=== PATIENT | male | born 1925 | race Caucasian/White ===

== ENCOUNTER 2016-08-18 09:33 | Inpatient (IN) | payer MEDICARE, OTHER ==
[2016-08-18 10:08] LABS: ABSOLUTE NEUTROPHIL COUNT 12.2 K/mm3 (1.8-7.7); BASO # 0.1 K/mm3 (0.0-0.2); BASO % 0.4 % (0.2-1.0); EOS % 0.2 % (0.9-2.9); HEMATOCRIT 49.1 % (32.0-52.0); HEMOGLOBIN 15.8 gm/l (14.0-18.0); IMM NEUT # 0.1 K/mm3 (0-0.2); IMM NEUT% 0.8 % (0-1); LYMPH # 0.5 (1.0-4.8); LYMPH % 3.5 % (15-45); MEAN CELL VOLUME 95.7 fl (80.0-94.0); MEAN CORPUSCULAR HEMOGLOBIN 30.8 pg (27.0-31.0); MEAN CORPUSCULAR HGB CONC 32.2 g/dl (33.0-37.0); MONO # 1.3 (0.0-0.8); MONO % 8.8 % (4-12); NEUT % 86.3 % (43-75); PLATELET COUNT 270 K/mm3 (130-400); RED CELL DISTRIBUTION WIDTH 12.2 % (11.5-14.5)
[2016-08-18] MEDS ORDERED: LACTATED RINGERS 1,000 ML ONE ×2 (10:08→12:06)
[2016-08-18] MEDS ORDERED: LIDOCAINE 2% UROJECT 10 ML ONE (10:12)
[2016-08-18 10:16] LABS: INR 4.78; PROTHROMBIN TIME 54.5 SECONDS (9.3-11.4)
[2016-08-18 10:22] LABS: ALB/GLOB RATIO 1.1 (>1.0); ALBUMIN 3.8 gm/dL (3.5-5.7); CALCIUM 9.3 mg/dL (8.6-10.3)
[2016-08-18 10:26] LABS: SPECIFIC GRAVITY 1.015 (1.001-1.030); URINE BILIRUBIN NEGATIVE (NEGATIVE); URINE BLOOD 3+ (NEGATIVE); URINE GLUCOSE (UA) NEGATIVE (NEGATIVE); URINE NITRITE NEGATIVE (NEGATIVE); URINE PROTEIN 3+ (NEGATIVE); URINE UROBILINOGEN NORMAL (0-1 mg/dl)
[2016-08-18 10:27] LABS: URINE APPEARANCE CLOUDY; URINE COLOR RED; URINE LEUKOCYTE ESTERASE 1+ (NEGATIVE)
[2016-08-18 10:28] LABS: URINE BACTERIA 4+; URINE EPITHELIAL CELLS 0-1 /hpf; URINE RBC PACKED /hpf; URINE WBC 20-30 /hpf
--- NOTE | 2016-08-18 11:37 | RAD ---
08/18/2016 11:32 AM CHEST-AP BEDSIDE History: Known UTI. Hematuria. Comparison: 12/15/2011 Findings: Single AP view of the chest is obtained. The lungs are clear with out effusion or pneumothorax. The cardiomediastinal silhouette is unremarkable.. The osseous structures are intact.. Median sternotomy wires are present. IMPRESSION: No acute intrathoracic process.
[2016-08-18 11:39] LABS: TROPONIN I < 0.01 ng/ml (0.0-0.06)
[2016-08-18 11:43] LABS: CKMB ISOENZYME 5.5 ng/ml (0.6-6.3)
[2016-08-18] MEDS ORDERED: CEFTRIAXONE 1 GRAM DUPLEX 50 ML IV ONE (12:05)
[2016-08-18] MEDS ORDERED: FENTANYL 100 MCG/2 ML VIAL ONE (12:06)
[2016-08-18] MEDS ORDERED: SODIUM CHLORIDE 0.9% FLUSH 10 ML ONE (14:01)
[2016-08-18 14:15] VITALS: BMI 25.9
[2016-08-18] MEDS ORDERED: BISACODYL 10 MG SUP PR PRN (14:47)
[2016-08-18] MEDS ORDERED: SODIUM CHLORIDE 0.9% 100 ML IV PRN (14:47)
[2016-08-18] MEDS ORDERED: ACETAMINOPHEN 325 MG TABLET PO PRN (14:47)
[2016-08-18] MEDS ORDERED: BLISTEX LIPSTICK 1 EACH TP PRN (14:47)
[2016-08-18] MEDS ORDERED: BISACODYL 5 MG TABLET.EC PO PRN (14:47)
[2016-08-18] MEDS ORDERED: MAGNESIUM HYDROXIDE 30 ML UDCUP PO PRN (14:47)
[2016-08-18] MEDS ORDERED: MENTHOL/CETYLPYRD 1 EACH LOZENGE PO PRN (14:47)
[2016-08-18] MEDS ORDERED: ONDANSETRON 4 MG/2ML 2 ML VIAL IV PRN (14:57)
[2016-08-18] MEDS ORDERED: PANTOPRAZOLE SODIUM 40 MG VIAL IV SCH (15:00)
[2016-08-18] MEDS ORDERED: WARFARIN PER PHARMACY 1 EACH DOSE PO SCH (15:00)
[2016-08-18] MEDS ORDERED: SODIUM CHLORIDE 0.9% 1,000 ML IV SCH (15:00)
[2016-08-18] MEDS: INSULIN ASPART (DOSE) 100 UNITS/1 ML SUB-Q PRN ×3 (15:36→19:11)
[2016-08-18] MEDS: INSULIN GLARGINE (DOSE) 100 UNITS/ML UNIT SUB-Q SCH (15:36)
[2016-08-18 15:50] LABS: CALCIUM 9.4 mg/dL (8.6-10.3)
[2016-08-18] MEDS: PANTOPRAZOLE 40 MG TABLET DR PO SCH (17:06)
[2016-08-18] MEDS: INSULIN ASPART (DOSE) 100 UNITS/1 ML SUB-Q SCH (17:06)
--- NOTE | 2016-08-18 17:15 | HP ---
SUBHA DALY [id number] IDENTIFYING DATA: This is an 89-year-old male. DATE OF : 1925 CHIEF COMPLAINT: Hematuria. HISTORY OF PRESENT ILLNESS: The patient is an 89-year-old male accompanied by his who is providing details of the history today. The patient has a long-standing history of hematuria, the last episode was two years ago, and he was evaluated by Dr. Matta. He was found to have significant BPH, and no other problems at the time. He also has recurrent UTIs. On 07/29/2016, the patient seemed to have increased urinary frequency and he was evaluated at Urgent Care where they found a UTI and he was provided with ciprofloxacin. His infection did not seem to improve, then Dr. Gavin's office, his primary care physician, was contacted on 08/11/2016 for continued urinary frequency and urgency, and a second prescription of medications was provided. He was given ciprofloxacin for 14 days. Two days ago the patient's urinary frequency improved very little, and then two days ago he developed hematuria that has been worsening over the past two days. Due to the hematuria and that the patient takes warfarin, he presented to the emergency department today. His also notes that his blood sugar has been elevated for the past two or so weeks with this infection and they have been having difficulty controlling it. He is a poor historian, as he has memory loss. REVIEW OF SYSTEMS: General - no fevers or chills. HEENT - no throat pain or congestion. Cardiovascular - no chest pain or pressure. Respiratory - no shortness of breath or difficulty in breathing. Abdomen - nausea. Decreased appetite. No abdominal pain. No vomiting. - hematuria and increased urinary frequency. Musculoskeletal - no muscle aches or pains. Neurologic - no numbness or tingling. No headaches. PAST MEDICAL HISTORY: Includes: 1. Hyperlipidemia. 2. Type-2 diabetes. 3. BPH. 4. Hypertension. 5. Memory loss. PAST SURGICAL HISTORY: He has had: 1. Appendectomy. 2. Inguinal hernia repair. 3. Lumbar herniated disk repair. 4. Artificial heart valve. MEDICATIONS: Include: 1. Simvastatin. 2. Lantus. 3. Finasteride. 4. Lisinopril. 5. Warfarin. ALLERGIES: Sulfa. SOCIAL HISTORY: He lives with his who cares for him. No alcohol or drug use. 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 FAMILY MEDICAL HISTORY: Paternal history of Alzheimer's disease, migraines and acute myocardial infarction. Mother with diabetes. PHYSICAL EXAMINATION: GENERAL: The patient is alert and oriented. Mild distress, as he is unfamiliar with surroundings and wants to get out of bed. VITAL SIGNS: Temperature 98.2. Heart rate 127. Blood pressure 146/72. He is saturating 93% on room air. HEENT: Normocephalic, atraumatic. No tenderness to palpation. His mucous membranes are moist. His pupils are equal, round and reactive. His extraocular muscles are intact. NECK: Supple. Trachea is midline. CARDIOVASCULAR: Tachycardiac. It is regular. He has a click. Positive S1, S2. LUNGS: Clear to auscultation bilaterally. No rhonchi or wheezing. ABDOMEN: There is some distention. Nontender. No rebound and no guarding. MUSCULOSKELETAL: He is moving all extremities without difficulty. NEUROLOGIC: He is alert and oriented. He is moving all extremities without difficulty. LABORATORY STUDIES: White blood count 14.1, [id number], hematocrit 49.1 and platelet count of 270. PT of 54.5. INR of 4.78. Lactate 2.7, sodium 130, potassium 4.5, chloride 96, carbon dioxide 22, anion gap of 17, BUN of 40 and creatinine of 1.8. Glucose of 476. Troponin less than 0.1. CK-MB of 5.5. Urinalysis was red and cloudy, 3+ protein, negative glucose and ketones, 3+ blood, 1+ leukocyte esterase, 20-30 white blood cells, 0-1 epithelial cells and 4+ urine bacteria. IMAGING: A chest x-ray was obtained and interpreted as no acute intrathoracic process. TELEMETRY: On telemetry monitoring, the patient is sinus tachycardia with a rate of 127. ASSESSMENT/PLAN: This is an 89-year-old male with recurrent UTIs and recent development of hematuria with an elevated INR. 1. Sepsis secondary to UTI. Elevated lactate and elevated white blood count with tachycardia. His laboratory values with the elevated lactate and elevated white blood count, along with the tachycardia counts, to be attributed to DKA process. Prior urine culture results showed E-coli with pansensitivity. Will place him on Rocephin and monitor. Lactate was elevated. We will repeat this measurement. 2. DKA, with a glucose of 476 and an anion gap of 17. He received one liter of IV fluids in the ER. We will give him a second IV fluid liter bolus. He did take his Lantus last night. We will provide his usual doses, give him a sliding scale and monitor closely. We will continue IV fluids. 3. Elevated INR. The patient is anticoagulated, with hematuria. Will monitor, as he appears hemodynamically stable at this time. It is a very tenuous situation in that he needs anticoagulation for his mechanical valve, but if hematuria does not improve, we will have to provide vitamin K or other therapeutic measures. 4. RANJEET. Baseline creatinine is around 1 - 1.1. Today's creatinine is 1.8 secondary to decreased hypoperfusion due to the tachycardia. 5. Hyponatremia, unknown if acute or chronic. Will provide IV fluids and monitor. 6. Hyperlipidemia. Will continue his current medications. 7. BPH. Will continue his finasteride and monitor closely. Dr. Matta was consulted in the emergency department. He did not recommend against the López and to monitor the hematuria. 8. High blood pressure. Will continue his Lisinopril and monitor as necessary. 9. Memory loss. Unknown if the patient has dementia. With the patient's memory loss and irritation, he currently has a sitter for redirection and to remain calm. 10. The patient is a DNR. cc: Dr. Sam Gavin
[2016-08-18] MEDS: SODIUM CHLORIDE 0.9% 1,000 ML IV SCH (17:59)
[2016-08-18 19:17] LABS: CALCIUM 8.8 mg/dL (8.6-10.3)
[2016-08-18] MEDS ORDERED: SIMVASTATIN 40 MG TABLET PO SCH (20:00)
[2016-08-18] MEDS: DOCUSATE SODIUM 100 MG CAPSULE PO SCH (20:42)
--- NOTE | 2016-08-18 21:04 | PDOC36 ---
Provider Note Subject: Patient's mental status and hyperglycemia improving. Lactic acid and Cre worsening however. With patient's poor short term memory and requiring redirection, IVF hydration has been difficult. Will increase fluid rate and continue to monitor With recommendation to ALVIN delvalle, unable to monitor urine output.
[2016-08-18] MEDS ORDERED: QUETIAPINE FUMARATE 25 MG TABLET PO ONE (22:27)
[2016-08-18] MEDS ORDERED: IV START KIT ONE (22:51)
[2016-08-19] MEDS ORDERED: QUETIAPINE FUMARATE 25 MG TABLET PO ONE (01:22)
[2016-08-19] MEDS: SODIUM CHLORIDE 0.9% 1,000 ML IV SCH ×3 (03:02→20:54)
[2016-08-19] MEDS: INSULIN ASPART (DOSE) 100 UNITS/1 ML SUB-Q PRN (03:22)
[2016-08-19 05:41] LABS: ABSOLUTE NEUTROPHIL COUNT 10.1 K/mm3 (1.8-7.7); BASO # 0.1 K/mm3 (0.0-0.2); BASO % 0.6 % (0.2-1.0); EOS % 0.2 % (0.9-2.9); HEMATOCRIT 40.9 % (32.0-52.0); HEMOGLOBIN 13.3 gm/l (14.0-18.0); IMM NEUT # 0.1 K/mm3 (0-0.2); LYMPH # 0.5 (1.0-4.8); LYMPH % 3.8 % (15-45); MEAN CELL VOLUME 94.7 fl (80.0-94.0); MEAN CORPUSCULAR HEMOGLOBIN 30.8 pg (27.0-31.0); MEAN CORPUSCULAR HGB CONC 32.5 g/dl (33.0-37.0); MONO # 1.3 (0.0-0.8); MONO % 10.7 % (4-12); NEUT % 83.7 % (43-75); PLATELET COUNT 187 K/mm3 (130-400); RED CELL DISTRIBUTION WIDTH 12.2 % (11.5-14.5)
[2016-08-19 05:56] LABS: ALBUMIN 2.8 gm/dL (3.5-5.7); CALCIUM 8.5 mg/dL (8.6-10.3)
[2016-08-19] MEDS ORDERED: SODIUM CHLORIDE 0.9% 1,000 ML IV SCH (06:53)
[2016-08-19 07:05] LABS: BAND 4 % (0-10); BASOPHIL 0 % (0-1); EOSINOPHIL 2 % (1-3); LYMPHOCYTE 9 % (15-45); MONOCYTE 9 % (4-12); NEUTROPHILS 76 % (43-75); PLATELET ESTIMATE NORMAL (NORMAL); TOTAL CELLS COUNTED 100
--- NOTE | 2016-08-19 07:43 | PDOC43 ---
- Subjective Chief Complaint: hematuria Patient with poor short term memory, remains slightly agitated and trying to get out of bed. Constant request to urinate even though he has adult diaper and urinal at bedside. With his fidgeting, IV fluid administration has been challenging. He has no complaints Subjective: Reports Pain Tolerable, Reports Tolerating Diet Well, Denies Urinating Without Difficulty, Denies Shortness of Breath, Denies Cough, Denies Chest Pain, Denies Abdominal Pain, Denies Nausea - Objective Vital Signs Temperature 98.7 F 08/19/16 03:20 Pulse Rate 105 08/19/16 03:20 Respiratory Rate 26 08/19/16 04:00 Blood Pressure 100/57 08/19/16 03:20 O2 Saturation by Pulse Oximetry 94 08/19/16 03:20 Oxygen Delivery Method Room Air Oxygen Flow Rate 0 Intake and Output 08/17/16 08/18/16 08/19/16 23:59 23:59 23:59 Intake Total 2144 2030 Output Total 463 183 Balance 1681 1847 General: Alert, Cooperative, Other (oriented to self, is redirectable), No Acute Distress HEENT: Atraumatic, PERRLA, EOMI, Other (mucus membranes dry) Lungs: Clear to Auscultation Bilaterally, Normal Air Movement Cardiovascular: Regular Rate and Rhythm, Normal S1, Normal S2, Other ( tachycardic, click) Abdomen: Soft, Mild Distention, No Rigid, No Tenderness, No Rebounding Extremities: No Cyanosis, No Edema, No Tenderness Peripheral Pulses: Radial (L): 2+, Radial (R): 2+, Posterior Tibialis (L): 1+, Posterior Tibialis (R): 1+ Neurological: Normal Speech Psych/Mental Status: Normal Affect, Anxious, Other (will calm down with rediretion) Laboratory 08/19/16 05:15 08/19/16 05:15 08/19/16 08/19/16 08/18/16 05:15 00:35 21:14 RBC 4.32 L MCV 94.7 H MCHC 32.5 L VBG Lactate 2.3 H BUN 41 H Estimated GFR 34 L POC Capillary Glucose 113 H Calcium 8.5 L Total Protein 5.5 L Albumin 2.8 L 08/18/16 08/18/16 08/18/16 19:05 18:50 17:01 RBC MCV MCHC VBG Lactate 3.0 H BUN 42 H Estimated GFR 30 L POC Capillary Glucose 179 H 383 H Calcium Total Protein Albumin 08/18/16 08/18/16 14:47 12:24 RBC MCV MCHC VBG Lactate 2.7 H BUN Estimated GFR POC Capillary Glucose 456 H Calcium Total Protein Albumin Current Medications: Current meds reviewed in EMR. - Problems: Assessment/Plan (1) Sepsis Qualifiers: Sepsis type: sepsis due to unspecified organism Qualifier Code: (A41.9 ) Sepsis, unspecified organism Status: AcuteAssessment/Plan: 2nd to UTI. WBC improving, remains afebrile, HR elevation when patient active but resolves when he is calm. Lactate variation overnight which is multifactorial due to DKA, poor IVF access, poor urine output. Patient is more alert and redirectable which is improvement in his mental status. Cre with slow improvement. Abx based upon urine culture results which grew e coli. Current urine culture pending. Increased IV Fluid rate and if patient remains calm has good urine output (2) DKA (diabetic ketoacidoses) Qualifiers: Diabetes mellitus type: type 2 Status: AcuteAssessment/Plan: BS improved with resolution of AG. (3) UTI (urinary tract infection) Qualifiers: Urinary tract infection type: acute cystitis Hematuria presence: with hematuria Qualifier Code: (N30.01) Acute cystitis with hematuria Status : AcuteAssessment/Plan: with sepsis, recent UTI with e coli on culture, ABx based on recent culture results. With his significant BPH, difficult to monitor urine output as urology recommends against delvalle catheter. Patient with extreme difficulty understanding the use of adult diaper and difficulty with urinal use so urine output difficult to monitor. WBC improving. Current urine culture pending. Mental status improving With hematuria and elevated INR. (4) Elevated INR Status: AcuteAssessment/Plan: Patient on warfarin for mechanical valve. INR elevated, likely 2nd to use of ciprofloxacin and poor oral intake with his loss of appetite. Contributing to hematuria. Monitor, Vitamin K if remains elevated (5) RANJEET (acute kidney injury) Status: AcuteAssessment/Plan: multifactorial with po poor intake, sepsis. Slow improvement, increasing IVF rate (6) Hyponatremia Status: AcuteAssessment/Plan: resolved (7) HLD (hyperlipidemia) Qualifiers: Hyperlipidemia type: mixed hyperlipidemia Qualifier Code: (E78.2) Mixed hyperlipidemia Status: AcuteAssessment/Plan: stable (8) BPH (benign prostatic hypertrophy) Qualifiers: Prostatic enlargement morphology: unspecified morphology Lower urinary tract symptom presence: symptoms present Qualifier Code: (N40.1) Benign prostatic hyperplasia with lower urinary tract symptoms Status: Acute Assessment/Plan: contributes to poor urine output and painful urination. Traumatic delvalle attempt in ED contributing to hematuria (9) Memory loss Status: AcuteAssessment/Plan: poor short term memory making cares extremely difficult with constant redirection, 1-1 cares (10) Hematuria Status: AcuteAssessment/Plan: multifactorial due to UTI, elevated INR and traumatic delvalle attempt. Dr. Matta, urology, contacted from ED and his recommendation is to remove delvalle and monitor (11) Anemia Qualifiers: Anemia type: unspecified type Qualifier Code: (D64.9) Anemia, unspecified Status: AcuteAssessment/Plan: multifactorial and baseline hemoglobin low, dilutional, acute blood loss From 15.8 to 13.3
[2016-08-19 07:58] LABS: PROTHROMBIN TIME 60.9 SECONDS (9.3-11.4)
[2016-08-19 08:03] LABS: INR 5.31
[2016-08-19] MEDS ORDERED: PHYTONADIONE 10 MG/1 ML AMP IV ONE (08:16)
[2016-08-19] MEDS: LISINOPRIL 10 MG TABLET PO SCH (09:52)
[2016-08-19] MEDS: DOCUSATE SODIUM 100 MG CAPSULE PO SCH ×2 (09:52→21:00)
[2016-08-19] MEDS: QUETIAPINE FUMARATE 25 MG TABLET PO SCH ×2 (09:53→21:01)
[2016-08-19] MEDS: FINASTERIDE 5 MG TABLET PO SCH (09:53)
[2016-08-19] MEDS: INSULIN ASPART (DOSE) 100 UNITS/1 ML SUB-Q SCH ×3 (09:57→16:51)
[2016-08-19] MEDS ORDERED: LIDOCAINE 2% UROJECT 10 ML ONE (10:27)
[2016-08-19] MEDS ORDERED: LORAZEPAM 2 MG/ML 1ML SDV IV ONE (10:59)
[2016-08-19] MEDS ORDERED: WATER FOR IRRIG,STERILE 1,000 ML BOT ONE (11:04)
[2016-08-19] MEDS ORDERED: MORPHINE SULFATE 2 MG/ML SYRINGE IV ONE (11:04)
[2016-08-19] MEDS ORDERED: SODIUM CHLORIDE 3 L IRRIG BAG 3,000 ML IR ONE (11:10)
[2016-08-19] MEDS ORDERED: WATER FOR IRRIG,STERILE 1,000 ML BOT IR ONE (11:39)
[2016-08-19] MEDS: SODIUM CHLORIDE 3,000 ML IRRIG.SOLN IR SCH ×4 (11:43→21:31)
--- NOTE | 2016-08-19 11:52 | OP ---
Brent Lopez [id number] DATE OF SURGERY: 08/19/2016 SURGEON: Mik Matta M.D. This surgery is performed in the intensive care unit at [facility]. WASTE PICKER: None. ANESTHESIA: Lidocaine gel infusion into urethra. PREPROCEDURE DIAGNOSIS: Hematuria with clot retention. POSTPROCEDURAL DIAGNOSES: 1. Hematuria with clot retention. 2. Phimosis. PROCEDURE: Difficult urethral catheter placement with evacuation of clots. INDICATIONS: An 89-year-old man admitted yesterday having recently been treated with ciprofloxacin for a presumed urinary tract infection. He was chronic warfarin and his INR chevy substantially and he began experiencing hematuria which ultimately brought him to the emergency room. While he was voiding and not reporting any clots and the apparent residual was relatively small, the situation was complicated by the fact that the emergency room personnel attempted the catheter placement. Their small catheter properly clotted and he now has progressed to clot retention having had that smaller catheter removed yesterday. His INR remains high at 5 or above. He on treatment for possible infection with a different antibiotic at this point. FINDINGS: Tight phimosis and inferior meatal narrowing. Difficult catheterization with known prostatic enlargement, irregular cord swelling, remote TURP, and known vessels along the prostatic urethra which are the likely source of the current bleeding. There was only a small amount of clot in the bladder and the urine itself was brownish in color suggesting relatively old blood. PROCEDURE: The patient was identified and provided with some analgesics and sedation by his medical staff. The penile region was prepared with Betadine. I initially could not get a catheter passed the phimosis and used a hemostat to dilate this area partially. Then, I used a urojet to inject Lidocaine jelly and subsequently used a 24-Hungarian catheter on a catheter guide which I carefully directed through the urethra and guided it through the prostatic urethra into the bladder and removed the guide. We drained the bladder of old urine. The patient probably felt more comfortable. Ultimately inflated the balloon with 30 mL of water and hand irrigated to clear accumulated small amounts of clot. We left the catheter thorough irrigation and gravity drainage. Estimated blood loss acutely less than 20 mL. The old blood estimated at probably 50 mL. JOB: [id number] CC: Dr. Sam Justinton hospitalist staff
[2016-08-19] MEDS: CEFTRIAXONE SODIUM 2 G in SODIUM CHLORIDE 0.9% 100 ML IV SCH (11:53)
[2016-08-19] MEDS: PANTOPRAZOLE 40 MG TABLET DR PO SCH (16:33)
[2016-08-19] MEDS: INSULIN GLARGINE (DOSE) 100 UNITS/ML UNIT SUB-Q SCH (16:50)
[2016-08-19] MEDS ORDERED: SODIUM CHLORIDE IRRIG 1,000 ML BOT IR ONE (18:09)
[2016-08-19] MEDS: WATER IV SCH (19:31)
[2016-08-19] MEDS: FLUCONAZOLE IV SCH (19:31)
[2016-08-20] MEDS: SODIUM CHLORIDE 3,000 ML IRRIG.SOLN IR SCH ×9 (00:35→22:21)
[2016-08-20] MEDS: SODIUM CHLORIDE 0.9% 1,000 ML IV SCH ×3 (04:38→15:45)
[2016-08-20 05:51] LABS: HEMATOCRIT 42.4 % (32.0-52.0); HEMOGLOBIN 13.8 gm/l (14.0-18.0); MEAN CELL VOLUME 93.8 fl (80.0-94.0); MEAN CORPUSCULAR HEMOGLOBIN 30.5 pg (27.0-31.0); MEAN CORPUSCULAR HGB CONC 32.5 g/dl (33.0-37.0); RED CELL DISTRIBUTION WIDTH 12.4 % (11.5-14.5)
[2016-08-20 06:06] LABS: INR 1.31
[2016-08-20 06:12] LABS: CALCIUM 8.3 mg/dL (8.6-10.3)
--- NOTE | 2016-08-20 08:31 | PDOC43 ---
- Subjective Chief Complaint: hematuria, sepsis, UTI RN reports HR 120-130s, sinus tachy, but up to 180 when getting up to stand. Minimal appetite, some nausea this am reported. Delvalle still in, draining pale urine, not much blood, minimal clots, No BMs. Respiratory status ok, sl tachypnea, thought to be anxiety; pt still c/ o need to urinate (but has Delvalle in, low residual - 120ish). Some anxiety, not overly agitated today, although pt reports need to have BM/ having BM. C/o needing to urinate (but Delvalle in). - Objective Vital Signs Temperature 98.8 F 08/20/16 07:00 Pulse Rate 120 08/20/16 07:00 Respiratory Rate 29 08/20/16 07:00 Blood Pressure 144/77 08/20/16 07:00 O2 Saturation by Pulse Oximetry 96 08/20/16 07:00 Oxygen Delivery Method Room Air Oxygen Flow Rate 0 Vital Signs Last 12 Hours Temp Pulse Resp BP Pulse Ox 08/20/16 07:00 98.8 F 120 29 144/77 96 08/20/16 02:59 99.5 F 115 32 110/60 96 08/19/16 22:56 99.1 F 122 30 143/79 97 08/19/16 19:53 34 08/19/16 19:35 98.2 F 148 28 150/69 99 Intake and Output 08/18/16 08/19/16 08/20/16 23:59 23:59 23:59 Intake Total 2144 3895 1267 Output Total 463 3009 750 Balance 1681 886 517 Intake & Output 08/19/16 08/19/16 08/20/16 15:59 23:59 07:59 Intake Total 1865 1267 Output Total 1201 1625 750 Balance -1201 240 517 Weight 83.5 kg 84.2 kg Intake: PO Intake 200 120 IV Fluids 1665 1147 Output: Void 15 Delvalle Output 900 1625 750 Diaper Void (1gm=1 ml) 286 Other: Unmeasured Stool Amount Smear Number of Stools 1 General: Alert, Mild Distress (a little animated, anxious), No Oriented x3 ( Oriented - [facility], Guesses October 2001.) Lungs: Clear to Auscultation Bilaterally, Normal Air Movement Cardiovascular: No Regular Rate and Rhythm (tachycardic, regular. No murmur noted. Chest with midline incision, healed.) Abdomen: Soft, Normal Bowel Sounds, Non-Distended, No Tenderness, No Rebounding , No Involuntary Guarding Extremities: Other (SCDs), No Edema Skin: Normal Color Neurological: Normal Speech Psych/Mental Status: Other (some confusion.) Loose sl red area at staining on bed, but stool not bloody. Laboratory 08/20/16 05:30 08/20/16 05:30 08/20/16 08/19/16 05:30 07:30 RBC 4.52 L MCHC 32.5 L PT 14.0 H 60.9 H INR 5.31 H* BUN 40 H Estimated GFR 32 L Calcium 8.3 L Current Medications: Current meds reviewed in EMR. Active Medications Cardiovascular Lisinopril (Prinivil) 10 mg PO DAILY [facility] Last Admin: 08/19/16 09:52 Dose: 10 mg Simvastatin (Zocor) 40 mg PO QPM [facility] Last Admin: 08/18/16 20:42 Dose: 40 mg Endocrine Insulin Aspart (Novolog (Dose)) 0 units SUB-Q WM/BEDTIME PRN; Protocol PRN Reason: Blood Sugar > Last Admin: 08/19/16 03:22 Dose: 3 units Insulin Aspart (Novolog (Dose)) 5 units SUB-Q 0900 [facility] Last Admin: 08/19/16 09:57 Dose: 5 units Insulin Aspart (Novolog (Dose)) 10 units SUB-Q 1300,1700 [facility] Last Admin: 08/19/16 16:51 Dose: 10 units Insulin Glargine (Lantus (Dose)) 20 units SUB-Q Q24H [facility] Last Admin: 08/19/16 16:50 Dose: 20 units FEN Sodium Chloride (Sodium Chloride 0.9%) 1,000 mls @ 100 mls/hr IV .Q10H [facility] Last Admin: 08/20/16 04:38 Dose: 100 mls/hr GI Docusate Sodium (Colace) 100 mg PO BID [facility] Last Admin: 08/19/16 21:00 Dose: 100 mg Pantoprazole Sodium (Protonix) 40 mg PO Q24H [facility] Last Admin: 08/19/16 16:33 Dose: 40 mg Finasteride (Proscar) 5 mg PO DAILY [facility] Last Admin: 08/19/16 09:53 Dose: 5 mg ID Ceftriaxone Sodium 2 g/ Sodium (Chloride) 100 mls @ 200 mls/hr IV Q24H [facility] Last Admin: 08/19/16 11:53 Dose: 200 mls/hr Fluconazole/Sodium Chloride (100 mg/ Sterile Water) 50 mls @ 100 mls/hr IV Q24H [facility] Last Admin: 08/19/16 19:31 Dose: 100 mls/hr Neuro/Psych Quetiapine Fumarate (Seroquel) 25 mg PO BID [facility] Last Admin: 08/19/16 21:01 Dose: 25 mg PRN Acetaminophen (Tylenol) 650 mg PO Q6H PRN PRN Reason: Pain or Temperature > 100.5 F Benzocaine/Menthol (Cepacol) 1 each PO PRN PRN PRN Reason: Sore Throat Bisacodyl (Dulcolax) 10 mg RI DAILY PRN PRN Reason: Constipation Bisacodyl (Dulcolax) 5 mg PO DAILY PRN PRN Reason: Constipation Magnesium Hydroxide (Milk Of Magnesia) 30 ml PO DAILY PRN PRN Reason: Constipation Ondansetron HCl (Zofran) 4 mg IV Q6H PRN PRN Reason: Nausea/Vomiting Petrolatum/Paraffin/Mineral Oil (Blistex) 1 each TP PRN PRN PRN Reason: Dry and/or chapped lips Last Admin: 08/19/16 11:46 Dose: 1 tube VTE Miscellaneous (Coumadin Per Pharmacy) 1 each PO PERPHARMACY [facility] - Problems: Assessment/Plan (1) Sepsis Qualifiers: Sepsis type: Escherichia coli Qualifier Code: (A41.51) Sepsis due to Escherichia coli [E. coli] Status: AcuteAssessment/Plan: Attributed UTI, with E coli identified earlier, tx with Cipro, now with Gisselle albicans. WBC improving, remains afebrile, HR elevation when patient active but resolves when he is calm. Abx (Rocephin) based upon urine culture results which grew E coli. Current urine culture shows Gisselle, diflucan started. BP good urine output fairly good. Continue IVF, and monitor. PO intake improved yesterday. (2) Urinary retention due to benign prostatic hyperplasia Status: AcuteAssessment/Plan: Marked urinary retention yesterday, Delvalle catheter placed 08/19; appreciate Dr Lemmers care. (3) RANJEET (acute kidney injury) Status: AcuteAssessment/Plan: Creatinine continues elevated, around 2.0 (Stage III->IV). Had been 1.1 previously (Jun 2015) multifactorial with po poor intake, sepsis. Continue IVF, not hypotensive, not on NSAID nor MAX/ARB currently, (4) Anemia Qualifiers: Anemia type: unspecified type Qualifier Code: (D64.9) Anemia, unspecified Status: AcuteAssessment/Plan: Mild multifactorial, suspect combined CKD, dilutional, acute blood loss (hematuria) From 15.8 to 13.3 to 13.8 today (5) Elevated INR Status: ResolvedAssessment/Plan: Patient on warfarin for mechanical valve. INR elevated, likely 2nd to use of ciprofloxacin and poor oral intake with his loss of appetite. Contributing to hematuria. Vitamin K given 08/19 Starting lovenox for anticoagulation doses. 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 Would consider whether to switch to other oral anticoagulant later. (6) Hematuria Status: AcuteAssessment/Plan: multifactorial due to UTI, BPH, elevated INR and traumatic delvalle attempt. Dr. Matta, urology, had been contacted from ED and his recommendation was to remove delvalle, However, with urinary retention and concern for UTI, he was able to place Delvalle 08/19. Hematuria has improved, but will monitor as anticoagulation resumed. (7) UTI (urinary tract infection) Qualifiers: Urinary tract infection type: acute cystitis Hematuria presence: with hematuria Qualifier Code: (N30.01) Acute cystitis with hematuria Status : AcuteAssessment/Plan: with sepsis, recent UTI with E coli on previous culture, Gisselle albicans on urine cx now. Blood culture negative so far. Mental status improving, VS better. (8) BPH (benign prostatic hypertrophy) Qualifiers: Prostatic enlargement morphology: unspecified morphology Lower urinary tract symptom presence: symptoms present Qualifier Code: (N40.1) Benign prostatic hyperplasia with lower urinary tract symptoms Status: Acute Assessment/Plan: contributes to poor urine output and painful urination. 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 (10) Loose stools Status: AcuteAssessment/Plan: with recent abx, checking stool for WBC, C diff (11) Mechanical heart valve present Status: ChronicAssessment/Plan: Documented in old records, including echo 2011. Resuming anticoagulation, using lovenox at this time. Would consider for other oral anticoagulant due to hx of lupus anticoagulant being present previously, difficulty monitoring, however, with hematuria, reversibility would be a concern as well. \ Recheck lupus anticoagulant VTE Prophylaxis: INR now low, anticipate start lovenox, tx dose, due to mechanical valves. Disposition: Will continue in IMCU today, monitor HR, BP, urine output, behavior
[2016-08-20] MEDS: DOCUSATE SODIUM 100 MG CAPSULE PO SCH ×2 (12:38→22:19)
[2016-08-20 12:39] LABS: C DIFF TOXIN A/B NEGATIVE (NEGATIVE)
[2016-08-20] MEDS: INSULIN ASPART (DOSE) 100 UNITS/1 ML SUB-Q SCH ×2 (12:41→12:44)
[2016-08-20] MEDS: LISINOPRIL 10 MG TABLET PO SCH (12:41)
[2016-08-20] MEDS: FINASTERIDE 5 MG TABLET PO SCH (12:41)
[2016-08-20] MEDS: METOPROLOL TARTRATE 25 MG TABLET PO SCH ×2 (12:41→22:20)
[2016-08-20] MEDS: QUETIAPINE FUMARATE 25 MG TABLET PO SCH ×2 (12:42→22:20)
[2016-08-20] MEDS: CEFTRIAXONE SODIUM 2 G in SODIUM CHLORIDE 0.9% 100 ML IV SCH (12:43)
[2016-08-20] MEDS: INSULIN GLARGINE (DOSE) 100 UNITS/ML UNIT SUB-Q SCH (12:49)
[2016-08-20] MEDS: ENOXAPARIN SODIUM 80 MG/0.8 ML SYRINGE SUB-Q SCH ×2 (12:49→22:20)
[2016-08-20] MEDS ORDERED: PHENAZOPYRIDINE HCL 100 MG TABLET PO SCH (15:00)
[2016-08-20] MEDS: PANTOPRAZOLE 40 MG TABLET DR PO SCH (15:14)
[2016-08-20] MEDS ORDERED: WARFARIN SODIUM 2.5 MG, WARFARIN SODIUM 1 MG PO ONE ×2 (16:00)
[2016-08-20] MEDS ORDERED: WARFARIN SODIUM 5 MG TABLET PO ONE (16:00)
[2016-08-20] MEDS: INSULIN ASPART (DOSE) 100 UNITS/1 ML SUB-Q PRN (17:13)
[2016-08-20] MEDS: WATER IV SCH (17:57)
[2016-08-20] MEDS: FLUCONAZOLE IV SCH (17:57)
[2016-08-20] MEDS: HYDROCODONE/ACETAMINOPHEN 5/325MG TABLET PO PRN (22:20)
[2016-08-21] MEDS: SODIUM CHLORIDE 3,000 ML IRRIG.SOLN IR SCH ×8 (02:00→22:43)
[2016-08-21] MEDS: SODIUM CHLORIDE 0.9% 1,000 ML IV SCH ×4 (02:00→22:44)
[2016-08-21 06:00] LABS: INR 1.4; PROTHROMBIN TIME 14.9 SECONDS (9.3-11.4)
[2016-08-21 08:08] LABS: ABSOLUTE NEUTROPHIL COUNT 13.9 K/mm3 (1.8-7.7); BASO # 0.1 K/mm3 (0.0-0.2); BASO % 0.6 % (0.2-1.0); EOS # 0.1 (0.0-0.5); EOS % 0.8 % (0.9-2.9); HEMATOCRIT 45.4 % (32.0-52.0); HEMOGLOBIN 14.3 gm/l (14.0-18.0); IMM NEUT # 0.3 K/mm3 (0-0.2); IMM NEUT% 1.5 % (0-1); LYMPH # 0.7 (1.0-4.8); LYMPH % 4.3 % (15-45); MEAN CELL VOLUME 98.9 fl (80.0-94.0); MEAN CORPUSCULAR HEMOGLOBIN 31.2 pg (27.0-31.0); MEAN CORPUSCULAR HGB CONC 31.5 g/dl (33.0-37.0); MEAN PLATELET VOLUME 10.7 fl (7.4-10.4); MONO # 1.3 (0.0-0.8); MONO % 7.7 % (4-12); NEUT % 85.1 % (43-75); PLATELET COUNT 172 K/mm3 (130-400)
[2016-08-21 08:18] LABS: CALCIUM 8.3 mg/dL (8.6-10.3)
[2016-08-21] MEDS: DOCUSATE SODIUM 100 MG CAPSULE PO SCH ×2 (08:44→22:43)
[2016-08-21] MEDS: ENOXAPARIN SODIUM 80 MG/0.8 ML SYRINGE SUB-Q SCH ×2 (08:44→20:46)
[2016-08-21] MEDS: INSULIN GLARGINE (DOSE) 100 UNITS/ML UNIT SUB-Q SCH (08:44)
[2016-08-21] MEDS: METOPROLOL TARTRATE 25 MG TABLET PO SCH ×2 (08:44→20:46)
[2016-08-21] MEDS: QUETIAPINE FUMARATE 25 MG TABLET PO SCH ×2 (08:45→20:46)
[2016-08-21] MEDS: FINASTERIDE 5 MG TABLET PO SCH (08:45)
[2016-08-21] MEDS: CEFTRIAXONE SODIUM 2 G in SODIUM CHLORIDE 0.9% 100 ML IV SCH (12:14)
--- NOTE | 2016-08-21 12:14 | PDOC43 ---
- Subjective Chief Complaint: hematuria, sepsis, UTI Patient awake trying to get out of bed. Follows direction. No complaints Subjective: Reports Pain Tolerable, Reports Tolerating Diet Well, Denies Adequate Oral Intake, Denies Shortness of Breath, Denies Cough, Denies Chest Pain, Denies Abdominal Pain, Denies Nausea, Denies Vomiting - Objective Vital Signs Temperature 97.9 F 08/21/16 08:00 Pulse Rate 113 08/21/16 08:00 Respiratory Rate 18 08/21/16 08:00 Blood Pressure 132/75 08/21/16 08:00 O2 Saturation by Pulse Oximetry 96 08/21/16 08:00 Oxygen Delivery Method Room Air Oxygen Flow Rate 0 Intake and Output 08/19/16 08/20/16 08/21/16 23:59 23:59 23:59 Intake Total 3895 2419 1320 Output Total 3009 1350 500 Balance 886 1069 820 General: Alert, Oriented x3, Cooperative, No Acute Distress HEENT: Atraumatic, Mucous membr. moist/pink Lungs: Clear to Auscultation Bilaterally, Normal Air Movement Cardiovascular: Regular Rate and Rhythm, Normal S1, Normal S2, Murmur, Gallops Abdomen: Soft, Mild Distention, No Rigid, No Tenderness, No Rebounding Extremities: No Cyanosis, No Edema, No Tenderness Neurological: Normal Speech Psych/Mental Status: Normal Mood, Anxious Laboratory 08/21/16 05:30 08/21/16 05:30 08/21/16 05:30 RBC 4.59 L MCV 98.9 H MCH 31.2 H MCHC 31.5 L PT 14.9 H BUN 36 H Estimated GFR 28 L Calcium 8.3 L % Immature Granulocyt 1.5 H Current Medications: Current meds reviewed in EMR. - Problems: Assessment/Plan (1) Sepsis Qualifiers: Sepsis type: Escherichia coli Qualifier Code: (A41.51) Sepsis due to Escherichia coli [E. coli] Status: AcuteAssessment/Plan: Attributed UTI, with E coli identified earlier, tx with Cipro, now with Gisselle albicans. WBC improving, remains afebrile, HR elevation when patient active but resolves when he is calm. Abx (Rocephin) based upon urine culture results which grew E coli. Current urine culture shows Gisselle, diflucan started. BP good urine output fairly good. Continue IVF, and monitor. PO intake improved yesterday. Sepsis resolved (2) DKA (diabetic ketoacidoses) Qualifiers: Diabetes mellitus type: type 2 Diabetes mellitus complication detail: without coma Qualifier Code: (E13.10) Other specified diabetes mellitus with ketoacidosis without coma Status: AcuteAssessment/Plan: BS improved with resolution of AG. Continue home insulin therapy with sliding scale for meal coverage (3) UTI (urinary tract infection) Qualifiers: Urinary tract infection type: acute cystitis Hematuria presence: with hematuria Qualifier Code: (N30.01) Acute cystitis with hematuria Status : AcuteAssessment/Plan: with sepsis, recent UTI with E coli on previous culture, Gisselle albicans on urine cx now. Blood culture negative so far. Mental status improving, VS better. Hematuria resolved (4) Elevated INR Status: ResolvedAssessment/Plan: Patient on warfarin for mechanical valve. INR elevated, likely 2nd to use of ciprofloxacin and poor oral intake with his loss of appetite. Contributing to hematuria. Vitamin K given 08/19 Starting lovenox for anticoagulation doses. 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 Would consider whether to switch to other oral anticoagulant later. INR now low, lovenox to cover (5) RANJEET (acute kidney injury) Status: AcuteAssessment/Plan: Creatinine continues elevated, around 2.0 (Stage III->IV). Had been 1.1 previously (Jun 2015) multifactorial with po poor intake, sepsis. Maybe chronic CKD Continue IVF, not hypotensive, not on NSAID nor MAX/ARB currently, Slight increase overnight, will continue IVF, delvalle for urine output monitoring (6) Hyponatremia Status: AcuteAssessment/Plan: resolved (7) HLD (hyperlipidemia) Qualifiers: Hyperlipidemia type: mixed hyperlipidemia Qualifier Code: (E78.2) Mixed hyperlipidemia Status: AcuteAssessment/Plan: stable (8) BPH (benign prostatic hypertrophy) Qualifiers: Prostatic enlargement morphology: unspecified morphology Lower urinary tract symptom presence: symptoms present Qualifier Code: (N40.1) Benign prostatic hyperplasia with lower urinary tract symptoms Status: Acute Assessment/Plan: contributes to poor urine output and painful urination. Traumatic delvalle attempt in ED contributing to hematuria (9) Memory loss Status: AcuteAssessment/Plan: poor short term memory making cares extremely difficult with constant redirection, 1-1 cares (10) Hematuria Status: AcuteAssessment/Plan: multifactorial due to UTI, BPH, elevated INR and traumatic delvalle attempt. Dr. Matta, urology, had been contacted from ED and his recommendation was to remove delvalle, However, with urinary retention and concern for UTI, he was able to place Delvalle 08/19. Hematuria has improved, but will monitor as anticoagulation resumed. 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 Disposition: Will continue in IMCU today, monitor HR, BP, urine output, behavior
[2016-08-21] MEDS: INSULIN ASPART (DOSE) 100 UNITS/1 ML SUB-Q PRN ×2 (12:58→18:34)
[2016-08-21] MEDS: PANTOPRAZOLE 40 MG TABLET DR PO SCH (14:59)
[2016-08-21] MEDS ORDERED: WATER IV ONE (15:00)
[2016-08-21] MEDS ORDERED: FLUCONAZOLE IV ONE (15:00)
[2016-08-21] MEDS ORDERED: WARFARIN SODIUM 2 MG, WARFARIN SODIUM 1 MG PO SCH ×2 (16:00)
[2016-08-21] MEDS ORDERED: WARFARIN SODIUM 2 MG TABLET ONE (17:02)
[2016-08-21] MEDS ORDERED: WARFARIN SODIUM 1 MG TABLET ONE (17:03)
[2016-08-21] MEDS: HYDROCODONE/ACETAMINOPHEN 5/325MG TABLET PO PRN (20:46)
[2016-08-22] MEDS: SODIUM CHLORIDE 3,000 ML IRRIG.SOLN IR SCH ×7 (01:22→23:20)
[2016-08-22] MEDS ORDERED: SODIUM CHLORIDE 3 L IRRIG BAG 3,000 ML IR ONE ×3 (05:52→18:06)
[2016-08-22] MEDS: SODIUM CHLORIDE 0.9% 1,000 ML IV SCH (06:03)
[2016-08-22 07:38] LABS: HEMATOCRIT 43.3 % (32.0-52.0); HEMOGLOBIN 13.7 gm/l (14.0-18.0); MEAN CORPUSCULAR HEMOGLOBIN 30.4 pg (27.0-31.0); MEAN CORPUSCULAR HGB CONC 31.6 g/dl (33.0-37.0); RED CELL DISTRIBUTION WIDTH 12.8 % (11.5-14.5)
[2016-08-22 07:45] LABS: INR 1.79; PROTHROMBIN TIME 19.4 SECONDS (9.3-11.4)
[2016-08-22 07:54] LABS: CALCIUM 8.6 mg/dL (8.6-10.3)
[2016-08-22] MEDS: HYDROCODONE/ACETAMINOPHEN 5/325MG TABLET PO PRN ×2 (08:05→19:17)
[2016-08-22] MEDS: QUETIAPINE FUMARATE 25 MG TABLET PO SCH ×2 (10:14→21:24)
[2016-08-22] MEDS: DOCUSATE SODIUM 100 MG CAPSULE PO SCH ×2 (10:14→21:51)
[2016-08-22] MEDS: INSULIN GLARGINE (DOSE) 100 UNITS/ML UNIT SUB-Q SCH (10:14)
[2016-08-22] MEDS: METOPROLOL TARTRATE 25 MG TABLET PO SCH ×2 (10:14→21:23)
[2016-08-22] MEDS: FINASTERIDE 5 MG TABLET PO SCH (10:14)
[2016-08-22] MEDS: ENOXAPARIN SODIUM 80 MG/0.8 ML SYRINGE SUB-Q SCH (10:15)
[2016-08-22] MEDS ORDERED: NYSTATIN TP SCH (10:30)
--- NOTE | 2016-08-22 10:33 | PDOC43 ---
- Subjective Chief Complaint: hematuria, sepsis, UTI Patient awake. Denies any complaints Patient pulled on catheter early this morning but did not remove it. His heamturia returned and continuous irrigation restarted. Currently, hematuria has resolved. Subjective: Reports Tolerating Diet Well, Reports Bowel Movement, Denies Adequate Oral Intake, Denies Shortness of Breath, Denies Cough, Denies Chest Pain, Denies Abdominal Pain, Denies Vomiting - Objective Vital Signs Temperature 97.7 F 08/22/16 09:19 Pulse Rate 112 08/22/16 09:19 Respiratory Rate 20 08/22/16 09:19 Blood Pressure 136/74 08/22/16 09:19 O2 Saturation by Pulse Oximetry 99 08/22/16 09:19 Oxygen Delivery Method Room Air Oxygen Flow Rate 0 Intake and Output 08/20/16 08/21/16 08/22/16 23:59 23:59 23:59 Intake Total 2419 3666 2154 Output Total 1350 1600 950 Balance 1069 2066 1204 General: Alert, Oriented x3, Cooperative, No Acute Distress HEENT: Atraumatic, PERRLA, EOMI, Other (dry mucus membranes) Lungs: Clear to Auscultation Bilaterally, Normal Air Movement Cardiovascular: Regular Rate and Rhythm, Normal S1, Normal S2, Other (click) Abdomen: Soft, Mild Distention, No Rigid, No Tenderness, No Rebounding Rectal Exam: Other (delvalle with dark brown to pink urine) Extremities: No Cyanosis, No Edema, No Tenderness Neurological: Normal Speech, Other Psych/Mental Status: Normal Mood Laboratory 08/22/16 07:19 08/22/16 07:19 08/22/16 07:19 RBC 4.51 L MCV 96.0 H MCHC 31.6 L PT 19.4 H BUN 29 H Estimated GFR 32 L Current Medications: Current meds reviewed in EMR. - Problems: Assessment/Plan (1) Sepsis Qualifiers: Sepsis type: Escherichia coli Qualifier Code: (A41.51) Sepsis due to Escherichia coli [E. coli] Status: AcuteAssessment/Plan: Attributed UTI, with E coli identified earlier, tx with Cipro, now with Gisselle albicans. WBC improving, remains afebrile, HR elevation when patient active but resolves when he is calm. Abx (Rocephin) based upon urine culture results which grew E coli. Current urine culture shows Gisselle, diflucan started. BP good urine output fairly good. Continue IVF, and monitor. PO intake improved yesterday. Sepsis resolved. WBC improving, currently 15.6 from 16.4 (2) DKA (diabetic ketoacidoses) Qualifiers: Diabetes mellitus type: type 2 Diabetes mellitus complication detail: without coma Qualifier Code: (E13.10) Other specified diabetes mellitus with ketoacidosis without coma Status: AcuteAssessment/Plan: BS improved with resolution of AG. Continue home insulin therapy with sliding scale for meal coverage (3) UTI (urinary tract infection) Qualifiers: Urinary tract infection type: acute cystitis Hematuria presence: with hematuria Qualifier Code: (N30.01) Acute cystitis with hematuria Status : AcuteAssessment/Plan: with sepsis, recent UTI with E coli on previous culture, Gisselle albicans on urine cx now. Blood culture negative so far. Mental status improving, VS better. Hematuria resolved until patient pulled foely. WBC improving (4) Elevated INR Status: ResolvedAssessment/Plan: Patient on warfarin for mechanical valve. INR elevated, likely 2nd to use of ciprofloxacin and poor oral intake with his loss of appetite. Contributing to hematuria. Vitamin K given 08/19 Starting lovenox for anticoagulation doses. 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 Would consider whether to switch to other oral anticoagulant later. INR now low, lovenox to cover (5) RANJEET (acute kidney injury) Status: AcuteAssessment/Plan: Creatinine continues elevated, around 2.0 (Stage III->IV). Had been 1.1 previously (Jun 2015) multifactorial with po poor intake, sepsis. Maybe chronic CKD Continue IVF, not hypotensive, not on NSAID nor MAX/ARB currently, Slight increase overnight, will continue IVF, delvalle for urine output monitoring (6) Hyponatremia Status: AcuteAssessment/Plan: resolved (7) HLD (hyperlipidemia) Qualifiers: Hyperlipidemia type: mixed hyperlipidemia Qualifier Code: (E78.2) Mixed hyperlipidemia Status: AcuteAssessment/Plan: stable (8) BPH (benign prostatic hypertrophy) Qualifiers: Prostatic enlargement morphology: unspecified morphology Lower urinary tract symptom presence: symptoms present Qualifier Code: (N40.1) Benign prostatic hyperplasia with lower urinary tract symptoms Status: Acute Assessment/Plan: contributes to poor urine output and painful urination. Traumatic delvalle attempt in ED contributing to hematuria (9) Memory loss Status: AcuteAssessment/Plan: poor short term memory making cares extremely difficult with constant redirection, 1-1 cares (10) Hematuria Status: AcuteAssessment/Plan: multifactorial due to UTI, BPH, elevated INR and traumatic delvalle attempt. Dr. Matta, urology, had been contacted from ED and his recommendation was to remove delvalle, However, with urinary retention and concern for UTI, he was able to place Delvalle 08/19. Hematuria has improved, but will monitor as anticoagulation resumed. Resolved Returned from patient trying to delvalle out tonight. 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 Disposition: Will continue in IMCU today, monitor HR, BP, urine output, behavior
[2016-08-22] MEDS: CEFTRIAXONE SODIUM 2 G in SODIUM CHLORIDE 0.9% 100 ML IV SCH (12:58)
[2016-08-22] MEDS: D5 1/2NS 1,000 ML IV SCH ×2 (13:01→22:08)
[2016-08-22] MEDS: INSULIN ASPART (DOSE) 100 UNITS/1 ML SUB-Q PRN (13:13)
[2016-08-22] MEDS ORDERED: ALBUTEROL NEB 2.5 MG/3 ML VIAL.NEB NEB PRN (14:08)
--- NOTE | 2016-08-22 15:16 | RAD ---
CHEST-AP BEDSIDE COMPARISON: Portable chest x-ray, 08/18/2016 HISTORY: Cough. FINDINGS: Views: Frontal chest. Lungs: Clear. Heart and vessels: Elongated thoracic aorta. Normal heart size. Trachea and bronchi: Normal Mediastinum and dano: Normal Costophrenic sulci: Normal Chest wall and bones: Sternotomy wires. Upper abdomen: Normal. IMPRESSION: No acute finding. Atherosclerosis of the aorta.
[2016-08-22] MEDS: WATER IV SCH (15:35)
[2016-08-22] MEDS: FLUCONAZOLE IV SCH (15:35)
[2016-08-22] MEDS ORDERED: WARFARIN SODIUM 2 MG, WARFARIN SODIUM 1 MG PO SCH ×2 (16:00)
[2016-08-22] MEDS ORDERED: WARFARIN SODIUM 2 MG TABLET ONE (16:02)
[2016-08-22] MEDS ORDERED: WARFARIN SODIUM 1 MG TABLET ONE (16:02)
[2016-08-22] MEDS: PANTOPRAZOLE 40 MG TABLET DR PO SCH (16:04)
[2016-08-22] MEDS ORDERED: SODIUM CHLORIDE 0.9% FLUSH 10 ML ONE (18:55)
[2016-08-22] MEDS ORDERED: IV START KIT ONE (18:56)
[2016-08-22] MEDS ORDERED: SODIUM CHLORIDE 500 IRRIG BOT 500 ML IR ONE ×2 (19:37→21:10)
[2016-08-22] MEDS: NYSTATIN CREAM 15 APPLIC/15 G TUBE TP SCH (22:10)
[2016-08-22 22:52] LABS: HEMATOCRIT 36.3 % (32.0-52.0); HEMOGLOBIN 11.6 gm/l (14.0-18.0)
[2016-08-22] MEDS ORDERED: PUMP TUBING ONE (23:06)
[2016-08-22 23:15] LABS: CALCIUM 7.8 mg/dL (8.6-10.3)
[2016-08-23] MEDS: SODIUM CHLORIDE 3,000 ML IRRIG.SOLN IR SCH ×3 (02:35→21:21)
[2016-08-23] MEDS ORDERED: SODIUM CHLORIDE 500 IRRIG BOT 500 ML IR ONE (03:40)
[2016-08-23] MEDS ORDERED: PHENAZOPYRIDINE HCL 200 MG TABLET ONE (05:32)
[2016-08-23] MEDS: HYDROCODONE/ACETAMINOPHEN 5/325MG TABLET PO PRN ×2 (05:36→19:49)
[2016-08-23] MEDS: PHENAZOPYRIDINE HCL 200 MG TABLET PO SCH ×4 (05:37→20:36)
[2016-08-23 06:05] LABS: HEMATOCRIT 44.1 % (32.0-52.0); HEMOGLOBIN 14.2 gm/l (14.0-18.0); MEAN CORPUSCULAR HEMOGLOBIN 30.6 pg (27.0-31.0); MEAN CORPUSCULAR HGB CONC 32.2 g/dl (33.0-37.0); RED CELL DISTRIBUTION WIDTH 12.8 % (11.5-14.5)
[2016-08-23 06:30] LABS: CALCIUM 8.7 mg/dL (8.6-10.3)
--- NOTE | 2016-08-23 07:05 | PDOC43 ---
- Subjective Chief Complaint: hematuria, sepsis, UTI Patient has had ongoing confusion and has pulled on his catheter several times yesterday causing recurrent severe hematuria. Subjective: Denies Chest Pain, Denies Abdominal Pain, Denies Fever - Objective Vital Signs Temperature 97.9 F 08/23/16 04:57 Pulse Rate 110 08/23/16 04:57 Respiratory Rate 22 08/23/16 04:57 Blood Pressure 130/68 08/23/16 04:57 O2 Saturation by Pulse Oximetry 94 08/23/16 04:57 Oxygen Delivery Method Room Air Oxygen Flow Rate 0 Intake and Output 08/21/16 08/22/16 08/23/16 06:59 06:59 06:59 Intake Total 2472 4500 3987 Output Total 1100 2050 5200 Balance 1372 2450 -1213 General: Alert HEENT: Mucous membr. moist/pink Lungs: Clear to Auscultation Bilaterally Cardiovascular: Other (reg tachy) Abdomen: Soft, Normal Bowel Sounds, Non-Distended, No Tenderness Extremities: No Edema Skin: Warm, Dry, Intact Neurological: Cranial Nerves 3-12 Intact Psych/Mental Status: Other (restless at times and impulsive) Laboratory 08/23/16 05:30 08/23/16 05:30 08/23/16 08/22/16 08/22/16 05:30 22:45 07:19 RBC 4.64 L 4.51 L MCV 95.0 H 96.0 H MCHC 32.2 L 31.6 L PT 19.4 H BUN 29 H Estimated GFR 38 L 38 L 32 L Calcium 7.8 L Current Medications: Current meds reviewed in EMR. - Problems: Assessment/Plan (1) Sepsis Qualifiers: Sepsis type: Escherichia coli Qualifier Code: (A41.51) Sepsis due to Escherichia coli [E. coli] Status: AcuteAssessment/Plan: Attributed UTI, with E coli identified earlier, tx with Cipro, now with Gisselle albicans. WBC remains elevated, remains afebrile, HR elevation when patient active but resolves when he is calm. Abx (Rocephin) based upon urine culture results which grew E coli. Current urine culture shows Gisselle, diflucan started. BP good urine output fairly good. Continue IVF, and monitor. PO intake improved yesterday. Sepsis resolved. WBC improving, currently 19.2 from 15.6 (2) DKA (diabetic ketoacidoses) Qualifiers: Diabetes mellitus type: type 2 Diabetes mellitus complication detail: without coma Qualifier Code: (E13.10) Other specified diabetes mellitus with ketoacidosis without coma Status: AcuteAssessment/Plan: BS improved with resolution of AG. But more elevated since starting D5 Continue home insulin therapy with sliding scale for meal coverage (3) UTI (urinary tract infection) Qualifiers: Urinary tract infection type: acute cystitis Hematuria presence: with hematuria Qualifier Code: (N30.01) Acute cystitis with hematuria Status : AcuteAssessment/Plan: with sepsis, recent UTI with E coli on previous culture(on 07/29), Gisselle albicans on urine cx now. Blood culture negative so far. Mental status improving, VS better. Hematuria resolved until patient pulled delvalle. WBC elevated (4) RANJEET (acute kidney injury) Status: AcuteAssessment/Plan: Creatinine continues elevated, around 1.7 (Stage III->IV). Had been 1.1 previously (Jun 2015) multifactorial with po poor intake, sepsis. Maybe chronic CKD Continue IVF, not hypotensive, not on NSAID nor MAX/ARB currently, (5) Hypernatremia Status: AcuteAssessment/Plan: Improved since started on D51/2NS- saline lock today (6) BPH (benign prostatic hypertrophy) Qualifiers: Prostatic enlargement morphology: unspecified morphology Lower urinary tract symptom presence: symptoms present Qualifier Code: (N40.1) Benign prostatic hyperplasia with lower urinary tract symptoms Status: Acute Assessment/Plan: contributes to poor urine output and painful urination. 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 Dr. Matta, urology, had been contacted from ED and his recommendation was to remove delvalle, However, with urinary retention and concern for UTI, he was able to place Delvalle 08/19. Hematuria had improved until evening of 08/22 then became intractible despite saline. Potassium Alum solution started last night with significant improvement. 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 today will recheck in am (10) Mechanical heart valve present Status: ChronicAssessment/Plan: stopped anticoagulant therapy on 08/22 due to intractible bleeding(hematuria), family aware of stroke risks VTE Prophylaxis: mechanical measures only due to intractible bleeding Disposition: Will continue in IMCU today, monitor HR, BP, urine output, behavior
[2016-08-23] MEDS: INSULIN ASPART (DOSE) 100 UNITS/1 ML SUB-Q PRN ×3 (07:52→21:56)
[2016-08-23] MEDS: D5 1/2NS 1,000 ML IV SCH ×3 (08:07→21:35)
[2016-08-23] MEDS: QUETIAPINE FUMARATE 25 MG TABLET PO SCH ×2 (09:05→20:38)
[2016-08-23] MEDS: FINASTERIDE 5 MG TABLET PO SCH (09:06)
[2016-08-23] MEDS: DOCUSATE SODIUM 100 MG CAPSULE PO SCH ×2 (09:06→20:35)
[2016-08-23] MEDS: METOPROLOL TARTRATE 25 MG TABLET PO SCH ×2 (09:06→20:37)
[2016-08-23] MEDS: INSULIN GLARGINE (DOSE) 100 UNITS/ML UNIT SUB-Q SCH (09:07)
[2016-08-23] MEDS ORDERED: IV START KIT ONE (11:22)
[2016-08-23] MEDS ORDERED: SODIUM CHLORIDE 0.9% FLUSH 10 ML ONE (11:22)
[2016-08-23] MEDS: NYSTATIN CREAM 15 APPLIC/15 G TUBE TP SCH ×2 (11:46→21:49)
[2016-08-23] MEDS: CEFTRIAXONE SODIUM 2 G in SODIUM CHLORIDE 0.9% 100 ML IV SCH (11:51)
[2016-08-23] MEDS ORDERED: LACTATED RINGERS 1,000 ML ONE (12:47)
[2016-08-23] MEDS ORDERED: FENTANYL 100 MCG/2 ML VIAL ONE (12:58)
[2016-08-23] MEDS ORDERED: MIDAZOLAM HCL 1 MG/ML 2ML VIAL ONE (12:58)
[2016-08-23] MEDS ORDERED: PROPOFOL 20 ML IV ONE ×2 (13:32→14:11)
[2016-08-23] MEDS ORDERED: LIDOCAINE 1% (PRES FREE) 30 ML VIAL ONE (13:42)
[2016-08-23 13:44] LABS: INR 2.65; PROTHROMBIN TIME 29.3 SECONDS (9.3-11.4)
[2016-08-23] MEDS ORDERED: EPHEDRINE SULFATE 50 MG/ML 1ML VIAL ONE (13:47)
[2016-08-23] MEDS ORDERED: ATROPINE SULFATE 0.4 MG/1 ML VIAL IV PRN (13:56)
[2016-08-23] MEDS ORDERED: FENTANYL 100 MCG/2 ML VIAL IV PRN (13:56)
[2016-08-23] MEDS ORDERED: NALOXONE HCL 0.4 MG/ML VIAL IV PRN (13:56)
[2016-08-23] MEDS ORDERED: ONDANSETRON 4 MG/2ML 2 ML VIAL IV PRN (13:56)
[2016-08-23] MEDS ORDERED: LACTATED RINGERS 1,000 ML IV SCH (14:00)
[2016-08-23] MEDS ORDERED: NYSTATIN CREAM 15 APPLIC/15 G TUBE TP SCH (14:30)
[2016-08-23] MEDS: FLUCONAZOLE IV SCH (16:08)
[2016-08-23] MEDS: WATER IV SCH (16:08)
[2016-08-23] MEDS: PANTOPRAZOLE 40 MG TABLET DR PO SCH ×2 (16:12→19:12)
[2016-08-23] MEDS: BACITRACIN 1 APPLIC/500 UNIT PACKET TP SCH ×2 (18:05→19:27)
--- NOTE | 2016-08-23 19:10 | OP ---
SUBHA DALY [id number] DATE OF PROCEDURE: August 23, 2016 SURGEON: Mik Matta M.D. ELECTRONIC MASKING SYSTEM OPERATOR: None. ANESTHESIA: Local with sedation. PREOPERATIVE DIAGNOSES: 1. Recurring clot retention. 2. Advanced phimosis. POSTOPERATIVE DIAGNOSES: 1. 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 2. Advanced chronic phimosis. PROCEDURES: 1. DORSAL SLIT. 2. CYSTOSCOPY WITH EVACUATION OF CLOT. 3. FULGURATION OF BLADDER NECK AND PROSTATIC URETHRAL BLEEDING SITES. SPECIMENS: None. INDICATIONS: An 89-year-old man with known recurrent prostatic tissue growth having previously undergone a procedure remotely, presented to the emergency room with urinary tract bleeding and excessive anticoagulation late last week. He was hospitalized and ultimately required passage of a large catheter which required dilation of his phimotic foreskin and then three-way saline irrigation. He was doing well but then apparently pulled on his catheter and gross hematuria recurred. They have had more trouble getting it totally under control. At this point, we are progressing to the operating room to find out what can be done to alleviate the condition. FINDINGS: Tight chronic phimosis, slit dorsally in today's procedure. The urethra itself distally appears normal. The membranous urethra is intact. Prostatic fossa is 5 cm or more in length and obscured by recurrent prostatic tissue growth on all sides. Within the bladder, there was abundant old clot and many diverticula of the bladder containing fragments of old clot. The bleeding source appeared to be anteriorly at the bladder neck where he must have torn tissue, extending along the prostatic urethra anteriorly as well as probably an initial site posteriorly just outside the bladder neck on the prostatic urethra at approximately the 7 o'clock position. PROCEDURE: The patient was identified and brought to the operating room where he was placed on the table supine and sedated. He was then moved to the dorsal lithotomy position and the genital region prepped and draped sterilely after having removed his urethral catheter. Next, we started with the dorsal slit, using lidocaine locally and then performing a crushing clamp application at the 12 o'clock position, slowing incising through the phimotic foreskin in 1 cm increments and securing the cut edges with interrupted #4-0 Chromic sutures. A total of 3 cm of slit was completed. Once that was done, we turned our attention to the endoscopic exam. A 21 [place]ian rigid cystoscope was passed with saline as an irrigant. Once in the bladder we initially spent quite a bit of time simply irrigating to remove all clot. Then, we identified the likely sources of bleeding and switched to a 27 [place]uvian resectoscope and a button electrode continuing saline as an irrigant. We cauterized the bleeding sites anteriorly, and ultimately also posterolaterally on the right. We continued irrigating through the resectoscope to remove some more of the old clot and debris. Once the condition was relatively stabilized, we removed the resectoscope and passed a 24 [place]uvian urethral catheter on a catheter guide and placed 40 mL of sterile water in its balloon. It was left to three-way saline irrigation. Estimated blood loss acutely less than 50 mL. Old clot accounts for at least 100 to 150 mL of old blood. Patient tolerated this procedure reasonably well and was taken in stable condition to the post-anesthesia room. cc: Mik Matta M.D. Greg Chu M.D. Sam Gavin D.O.
[2016-08-23] MEDS ORDERED: SODIUM CHLORIDE 3,000 ML IRRIG.SOLN IR PRN (21:31)
[2016-08-24] MEDS: BACITRACIN 1 APPLIC/500 UNIT PACKET TP SCH ×5 (00:02→20:49)
[2016-08-24] MEDS: HYDROCODONE/ACETAMINOPHEN 5/325MG TABLET PO PRN (03:46)
[2016-08-24 06:19] LABS: HEMATOCRIT 34.4 % (32.0-52.0); MEAN CELL VOLUME 96.4 fl (80.0-94.0); MEAN CORPUSCULAR HEMOGLOBIN 30.8 pg (27.0-31.0); RED CELL DISTRIBUTION WIDTH 13.1 % (11.5-14.5)
[2016-08-24 06:24] LABS: INR 3.31; PROTHROMBIN TIME 37.1 SECONDS (9.3-11.4)
[2016-08-24 06:25] LABS: CALCIUM 7.8 mg/dL (8.6-10.3)
[2016-08-24] MEDS: D5 1/2NS 1,000 ML IV SCH (07:13)
[2016-08-24] MEDS: FINASTERIDE 5 MG TABLET PO SCH (09:29)
[2016-08-24] MEDS: INSULIN GLARGINE (DOSE) 100 UNITS/ML UNIT SUB-Q SCH (09:29)
[2016-08-24] MEDS: METOPROLOL TARTRATE 25 MG TABLET PO SCH ×2 (09:29→20:49)
[2016-08-24] MEDS: QUETIAPINE FUMARATE 25 MG TABLET PO SCH ×2 (09:29→20:49)
[2016-08-24] MEDS: PHENAZOPYRIDINE HCL 200 MG TABLET PO SCH ×3 (09:29→20:49)
[2016-08-24] MEDS: DOCUSATE SODIUM 100 MG CAPSULE PO SCH ×2 (09:30→20:49)
[2016-08-24] MEDS: NYSTATIN CREAM 15 APPLIC/15 G TUBE TP SCH ×2 (09:30→20:50)
[2016-08-24] MEDS: INSULIN ASPART (DOSE) 100 UNITS/1 ML SUB-Q PRN ×2 (09:31→12:54)
[2016-08-24] MEDS: CEFTRIAXONE SODIUM 2 G in SODIUM CHLORIDE 0.9% 100 ML IV SCH (12:16)
--- NOTE | 2016-08-24 14:16 | PDOC43 ---
- Subjective Chief Complaint: hematuria, sepsis, UTI Pt reported to be needing 1:1 still. Irrigating catheter placed yesterday, now out, seems to be feeling better. Didn't eat much for lunch, just not so hungry. Patient reported to be alert, sl more appropriate. Urinating well with cath out now. Frequent BM - 4 since this am. No blood noted. Previous C diff neg 08/20 RN reports pt's main complaint is urgency, need to urinate. - Objective Vital Signs Temperature 97.9 F 08/24/16 07:34 Pulse Rate 100 08/24/16 07:34 Respiratory Rate 18 08/24/16 07:34 Blood Pressure 155/80 08/24/16 07:34 O2 Saturation by Pulse Oximetry 95 08/24/16 07:34 Oxygen Delivery Method Room Air Oxygen Flow Rate 0 Vital Signs Last 12 Hours Temp Pulse Resp BP Pulse Ox 08/24/16 07:34 97.9 F 100 18 155/80 95 08/24/16 07:25 18 Intake and Output 08/22/16 08/23/16 08/24/16 23:59 23:59 23:59 Intake Total 4621 2815 2560 Output Total 4750 2460 1210 Balance -107 196 4786 General: Alert, Cooperative, No Acute Distress Lungs: Clear to Auscultation Bilaterally, Normal Air Movement Cardiovascular: Irregular, Other Abdomen: Soft, Hypoactive Bowel Sounds, Mild Distention Extremities: No Edema Skin: Normal Color Neurological: Normal Speech, Other (sl hard of hearing.) Psych/Mental Status: Normal Affect, Other (alert, appears to be feeling better) Laboratory 08/24/16 05:30 08/24/16 05:30 08/24/16 08/24/16 08/24/16 12:29 07:21 05:30 RBC 3.57 L MCV 96.4 H MCHC 32.0 L PT 37.1 H Estimated GFR 38 L POC Capillary Glucose 237 H 302 H Calcium 7.8 L 08/23/16 08/23/16 08/23/16 21:48 16:52 14:40 RBC MCV MCHC PT Estimated GFR POC Capillary Glucose 296 H 137 H 176 H Calcium 08/23/16 13:20 RBC MCV MCHC PT 29.3 H Estimated GFR POC Capillary Glucose Calcium Current Medications: Current meds reviewed in EMR. Active Medications Acetaminophen (Tylenol) 650 mg PO Q6H PRN PRN Reason: Pain or Temperature > 100.5 F Acetaminophen/Hydrocodone Bitart ([place] 5/325) 1 tab PO Q4H PRN PRN Reason: Pain Last Admin: 08/24/16 03:46 Dose: 1 tab Albuterol Sulfate (Ventolin Inhalation Solution (Dose)) 2.5 mg NEB Q4H PRN PRN Reason: Wheezing Bacitracin (Bacitracin) 1 applic TP QID [facility] Last Admin: 08/24/16 12:16 Dose: 1 applic Benzocaine/Menthol (Cepacol) 1 each PO PRN PRN PRN Reason: Sore Throat Bisacodyl (Dulcolax) 10 mg IN DAILY PRN PRN Reason: Constipation Bisacodyl (Dulcolax) 5 mg PO DAILY PRN PRN Reason: Constipation Docusate Sodium (Colace) 100 mg PO BID [facility] Last Admin: 08/24/16 09:30 Dose: Not Given Finasteride (Proscar) 5 mg PO DAILY [facility] Last Admin: 08/24/16 09:29 Dose: 5 mg Ceftriaxone Sodium 2 g/ Sodium (Chloride) 100 mls @ 200 mls/hr IV Q24H [facility] Last Admin: 08/24/16 12:16 Dose: 200 mls/hr Sodium Chloride (Sodium Chloride 0.9%) 100 mls @ 25 mls/hr IV PRN PRN PRN Reason: Flush Last Admin: 08/24/16 12:17 Dose: 25 mls/hr Fluconazole/Sodium Chloride (100 mg/ Sterile Water) 50 mls @ 100 mls/hr IV Q24H [facility] Last Admin: 08/23/16 16:08 Dose: 100 mls/hr Insulin Aspart (Novolog (Dose)) 0 units SUB-Q WM/BEDTIME PRN; Protocol PRN Reason: Blood Sugar > Last Admin: 08/24/16 12:54 Dose: 5 units Insulin Aspart (Novolog (Dose)) 5 units SUB-Q 0900 [facility] Last Admin: 08/20/16 12:41 Dose: Not Given Insulin Aspart (Novolog (Dose)) 10 units SUB-Q 1300,1700 [facility] Last Admin: 08/20/16 12:44 Dose: Not Given Insulin Aspart (Novolog (Dose)) 0 units SUB-Q WM/BEDTIME PRN; Protocol PRN Reason: Blood Sugar > Last Admin: 08/22/16 13:13 Dose: 5 units Insulin Glargine (Lantus (Dose)) 23 units SUB-Q Q24H [facility] Last Admin: 08/24/16 09:29 Dose: 23 units Lisinopril (Prinivil) 10 mg PO DAILY [facility] Last Admin: 08/20/16 12:41 Dose: Not Given Magnesium Hydroxide (Milk Of Magnesia) 30 ml PO DAILY PRN PRN Reason: Constipation Metoprolol Tartrate (Lopressor) 25 mg PO BID [facility] Last Admin: 08/24/16 09:29 Dose: 25 mg Nystatin (Mycostatin Cream) 1 applic TP BID [facility] Last Admin: 08/24/16 09:30 Dose: 1 applic Ondansetron HCl (Zofran) 4 mg IV Q6H PRN PRN Reason: Nausea/Vomiting Pantoprazole Sodium (Protonix) 40 mg PO Q24H [facility] Last Admin: 08/23/16 19:12 Dose: 40 mg Petrolatum/Paraffin/Mineral Oil (Blistex) 1 each TP PRN PRN PRN Reason: Dry and/or chapped lips Last Admin: 08/19/16 11:46 Dose: 1 tube Phenazopyridine HCl (Pyridium) 200 mg PO TID [facility] Last Admin: 08/24/16 09:29 Dose: 200 mg Quetiapine Fumarate (Seroquel) 25 mg PO BID [facility] Last Admin: 08/24/16 09:29 Dose: 25 mg Simvastatin (Zocor) 40 mg PO QPM [facility] Last Admin: 08/18/16 20:42 Dose: 40 mg Sodium Chloride (Normal Saline 10ml Flush) 10 - 50 ml IV PRN PRN PRN Reason: IV Flush Last Admin: 08/24/16 12:55 Dose: 10 ml Sodium Chloride (Normal Saline 10ml Flush) 10 ml IV Q8HR [facility] Last Admin: 08/24/16 09:28 Dose: 10 ml Sodium Chloride (Sodium Chloride 3 L Irrig Bag) 3,000 ml IR Q3H PRN PRN Reason: IRRIGATION - Problems: Assessment/Plan (1) Sepsis Qualifiers: Sepsis type: Escherichia coli Qualifier Code: (A41.51) Sepsis due to Escherichia coli [E. coli] Status: AcuteAssessment/Plan: Attributed UTI, with E coli identified earlier, tx with Cipro, now with Gisselle albicans. WBC stable but remains elevated, afebrile, Abx (Rocephin) based upon urine culture results which grew E coli. Current urine culture shows Gisselle, diflucan started. BP good urine output fairly good. Continue IVF, and monitor. PO intake improved some. (2) Urinary retention due to benign prostatic hyperplasia Status: AcuteAssessment/Plan: Appreciate Dr Matta' care, with fulguration and placement of irrigation catheter. (3) RANJEET (acute kidney injury) Status: AcuteAssessment/Plan: Creatinine continues elevated, around 1.7 (Stage III->IV). Had been 1.1 previously (Jun 2015) multifactorial with po poor intake, sepsis. 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 INR elevated, likely 2nd to use of ciprofloxacin and poor oral intake with his loss of appetite. Vitamin K given 08/19, but INR edging up again. Outside record suggests hx lupus anticoagulant, which could affect his INR readings. Plan add'l Vit K, and consider checking for this. (6) Hematuria Status: AcuteAssessment/Plan: multifactorial due to UTI, BPH, elevated INR and traumatic delvalle attempt and patient induced trauma. Dr. Matta, urology, had been contacted from ED and his recommendation was to remove delvalle, However, with urinary retention and concern for UTI, he was able to place Delvalle 08/19. Hematuria had improved until evening of 08/22 then became intractible despite saline. Potassium Alum solution started last night with significant improvement. Stopped Lovenox and Coumadin due to persistent bleeding on 08/22 (7) UTI (urinary tract infection) Qualifiers: Urinary tract infection type: acute cystitis Hematuria presence: with hematuria Qualifier Code: (N30.01) Acute cystitis with hematuria Status : AcuteAssessment/Plan: with sepsis, recent UTI with E coli on previous culture(on 07/29), Gisselle albicans on urine cx now. Blood culture negative so far. Mental status improving. WBC still elevated (8) BPH (benign prostatic hypertrophy) Qualifiers: Prostatic enlargement morphology: unspecified morphology Lower urinary tract symptom presence: symptoms present Qualifier Code: (N40.1) Benign prostatic hyperplasia with lower urinary tract symptoms Status: Acute Assessment/Plan: contributes to poor urine output and painful urination. 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
[2016-08-24] MEDS: FLUCONAZOLE IV SCH (15:16)
[2016-08-24] MEDS: WATER IV SCH (15:16)
[2016-08-24] MEDS: PANTOPRAZOLE 40 MG TABLET DR PO SCH (15:16)
--- NOTE | 2016-08-24 15:34 | CT ---
ABD/PELVIS W/O CON COMPARISON: CT abdomen pelvis without contrast, 07/20/2013 HISTORY: 89 years old. Urinary tract infection, elevated white blood cell count, and diarrhea. Technique: Using a TosUpplication Aquilion [address] scanner, images were obtained from the diaphragm to the floor the pelvis. No intravenous contrast. An automated dose reduction technique was used to minimize patient radiation dose. Dose: CTDIvol (mGy): 14.30 DLP(mGycm): 802.60 FINDINGS: Lung bases: Minimal subsegmental atelectasis in both lung bases posteriorly, with minimal pleural effusions. Inferior mediastinum and heart: Mitral annular and aortic annular calcification. Liver: Normal Gallbladder: Normal Bile ducts: Normal. Pancreas: Normal Spleen: Normal Adrenal glands: Normal Kidneys: Bilateral marked hydronephrosis. Multiple cysts. Ureters: Bilateral marked hydroureter without calcification. Urinary bladder: Asymmetric superior wall thickening containing intramural air and bilateral diverticula A, progressed since 2013. Prostate gland and seminal vesicles: Again seen is enlargement of prostate, 6.2 cm AP by 65.9 cm transverse. Blood vessels: Normal. Lymph nodes: Normal Stomach: Mild hiatal hernia. Duodenum: Normal Small intestine: Normal Appendix: Not visible. Colon: Diverticulosis of the sigmoid and descending colon. No diverticulitis. Abdominal wall and supporting musculature: Normal Bones: No acute finding. Degenerative changes. IMPRESSION: 1. 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 Superior bladder wall diverticuli. 2. Marked bilateral hydronephrosis with enlarged prostate gland. Bilateral ureterovesical junction obstruction. 3. Multiple renal cysts. 4. Incidental findings include bibasilar subsegmental atelectasis and minimal pleural effusions, mitral and aortic annular calcification, mild hiatal hernia, diverticulosis of the descending and sigmoid colon, and degenerative changes in the spine. The report was discussed with Carlos Armendariz III, MD 08/16/2016 at 15:30
[2016-08-24 21:22] LABS: C DIFF TOXIN A/B NEGATIVE (NEGATIVE)
[2016-08-25 06:16] LABS: ABSOLUTE NEUTROPHIL COUNT 13.3 K/mm3 (1.8-7.7); BASO # 0.1 K/mm3 (0.0-0.2); BASO % 0.5 % (0.2-1.0); EOS # 0.3 (0.0-0.5); EOS % 1.7 % (0.9-2.9); HEMATOCRIT 35.6 % (32.0-52.0); HEMOGLOBIN 11.4 gm/l (14.0-18.0); IMM NEUT # 0.5 K/mm3 (0-0.2); IMM NEUT% 2.8 % (0-1); LYMPH # 0.9 (1.0-4.8); LYMPH % 5.3 % (15-45); MEAN CELL VOLUME 95.4 fl (80.0-94.0); MEAN CORPUSCULAR HEMOGLOBIN 30.6 pg (27.0-31.0); MEAN PLATELET VOLUME 9.9 fl (7.4-10.4); MONO # 1.2 (0.0-0.8); MONO % 7.3 % (4-12); NEUT % 82.4 % (43-75); PLATELET COUNT 203 K/mm3 (130-400); RED CELL DISTRIBUTION WIDTH 13.1 % (11.5-14.5)
[2016-08-25 06:29] LABS: INR 2.43; PARTIAL THROMBOPLASTIN TIME 40.1 SECONDS (24.5-33.0); PROTHROMBIN TIME 26.8 SECONDS (9.3-11.4)
[2016-08-25 06:39] LABS: ALB/GLOB RATIO 0.7 (>1.0); ALBUMIN 2.4 gm/dL (3.5-5.7); CALCIUM 8.4 mg/dL (8.6-10.3)
--- NOTE | 2016-08-25 08:10 | PDOC43 ---
- Subjective Chief Complaint: hematuria, sepsis, UTI Patient reports feeling ok, just has to urinate. Had loose stool this am. No new c/o. Had CT yesterday, hydronephrosis noted bilat. RN reports pt much less distressed now (vs earlier in hospitalization). No new c /o, off 1:1. - Objective Vital Signs Temperature 97.7 F 08/25/16 07:12 Pulse Rate 93 08/25/16 07:12 Respiratory Rate 20 08/25/16 07:12 Blood Pressure 156/106 08/25/16 07:12 O2 Saturation by Pulse Oximetry 94 08/25/16 07:12 Oxygen Delivery Method Room Air Oxygen Flow Rate 0 Vital Signs Last 12 Hours Temp Pulse Resp BP Pulse Ox 08/25/16 07:12 97.7 F 93 20 156/106 94 08/25/16 02:04 97.7 F 108 20 139/72 93 08/25/16 01:00 20 Intake and Output 08/23/16 08/24/16 08/25/16 23:59 23:59 23:59 Intake Total 2815 3345 200 Output Total 2460 1785 550 Balance 355 1560 -350 General: Alert, Cooperative, Acute Distress (no distress, just reports needing to urinate.) Lungs: Clear to Auscultation Bilaterally, Normal Air Movement Cardiovascular: Other (sl irregular. Heart sounds c/w mechanical heart valve) Abdomen: Soft, Normal Bowel Sounds, Non-Distended, No Tenderness, No Rebounding Extremities: Other (SCDs), No Edema Skin: Normal Color Neurological: Normal Speech Psych/Mental Status: Normal Affect Laboratory 08/25/16 05:30 08/25/16 05:30 08/25/16 08/25/16 08/24/16 06:00 05:30 21:14 RBC 3.73 L MCV 95.4 H MCHC 32.0 L PT 26.8 H PTT 40.1 H Estimated GFR 44 L POC Capillary Glucose 153 H Calcium 8.4 L Total Protein 5.8 L Albumin 2.4 L Albumin/Globulin Ratio 0.7 L % Immature Granulocyt 2.8 H 08/24/16 12:29 RBC MCV MCHC PT PTT Estimated GFR POC Capillary Glucose 237 H Calcium Total Protein Albumin Albumin/Globulin Ratio % Immature Granulocyt Current Medications: Current meds reviewed in EMR. Active Medications Acetaminophen (Tylenol) 650 mg PO Q6H PRN PRN Reason: Pain or Temperature > 100.5 F Acetaminophen/Hydrocodone Bitart ([place] 5/325) 1 tab PO Q4H PRN PRN Reason: Pain Last Admin: 08/24/16 03:46 Dose: 1 tab Albuterol Sulfate (Ventolin Inhalation Solution (Dose)) 2.5 mg NEB Q4H PRN PRN Reason: Wheezing Bacitracin (Bacitracin) 1 applic TP QID [facility] Last Admin: 08/25/16 09:53 Dose: 1 applic Benzocaine/Menthol (Cepacol) 1 each PO PRN PRN PRN Reason: Sore Throat Bisacodyl (Dulcolax) 10 mg UT DAILY PRN PRN Reason: Constipation Bisacodyl (Dulcolax) 5 mg PO DAILY PRN PRN Reason: Constipation Docusate Sodium (Colace) 100 mg PO BID [facility] Last Admin: 08/24/16 20:49 Dose: Not Given Finasteride (Proscar) 5 mg PO DAILY [facility] Last Admin: 08/25/16 09:52 Dose: 5 mg Ceftriaxone Sodium 2 g/ Sodium (Chloride) 100 mls @ 200 mls/hr IV Q24H [facility] Last Admin: 08/24/16 12:16 Dose: 200 mls/hr Sodium Chloride (Sodium Chloride 0.9%) 100 mls @ 25 mls/hr IV PRN PRN PRN Reason: Flush Last Admin: 08/24/16 12:17 Dose: 25 mls/hr Fluconazole/Sodium Chloride (100 mg/ Sterile Water) 50 mls @ 100 mls/hr IV Q24H [facility] Last Admin: 08/24/16 15:16 Dose: 100 mls/hr Insulin Aspart (Novolog (Dose)) 0 units SUB-Q WM/BEDTIME PRN; Protocol PRN Reason: Blood Sugar > Last Admin: 08/24/16 12:54 Dose: 5 units Insulin Aspart (Novolog (Dose)) 5 units SUB-Q 0900 [facility] Last Admin: 08/20/16 12:41 Dose: Not Given Insulin Aspart (Novolog (Dose)) 10 units SUB-Q 1300,1700 [facility] Last Admin: 08/20/16 12:44 Dose: Not Given Insulin Aspart (Novolog (Dose)) 0 units SUB-Q WM/BEDTIME PRN; Protocol PRN Reason: Blood Sugar > Last Admin: 08/22/16 13:13 Dose: 5 units Insulin Glargine (Lantus (Dose)) 25 units SUB-Q Q24H [facility] Last Admin: 08/25/16 08:34 Dose: 25 units Lisinopril (Prinivil) 10 mg PO DAILY [facility] Last Admin: 08/20/16 12:41 Dose: Not Given Magnesium Hydroxide (Milk Of Magnesia) 30 ml PO DAILY PRN PRN Reason: Constipation Metoprolol Tartrate (Lopressor) 25 mg PO BID [facility] Last Admin: 08/25/16 09:52 Dose: 25 mg Nystatin (Mycostatin Cream) 1 applic TP BID [facility] Last Admin: 08/25/16 09:52 Dose: 1 applic Ondansetron HCl (Zofran) 4 mg IV Q6H PRN PRN Reason: Nausea/Vomiting Pantoprazole Sodium (Protonix) 40 mg PO Q24H [facility] Last Admin: 08/24/16 15:16 Dose: 40 mg Petrolatum/Paraffin/Mineral Oil (Blistex) 1 each TP PRN PRN PRN Reason: Dry and/or chapped lips Last Admin: 08/19/16 11:46 Dose: 1 tube Phenazopyridine HCl (Pyridium) 200 mg PO TID [facility] Last Admin: 08/25/16 09:52 Dose: 200 mg Quetiapine Fumarate (Seroquel) 25 mg PO BID [facility] Last Admin: 08/25/16 09:51 Dose: 25 mg Simvastatin (Zocor) 40 mg PO QPM [facility] Last Admin: 08/18/16 20:42 Dose: 40 mg Sodium Chloride (Normal Saline 10ml Flush) 10 - 50 ml IV PRN PRN PRN Reason: IV Flush Last Admin: 08/24/16 15:16 Dose: 10 ml Sodium Chloride (Normal Saline 10ml Flush) 10 ml IV Q8HR [facility] Last Admin: 08/25/16 09:51 Dose: 10 ml Sodium Chloride (Sodium Chloride 3 L Irrig Bag) 3,000 ml IR Q3H PRN PRN Reason: IRRIGATION - Problems: Assessment/Plan (1) Sepsis Qualifiers: Sepsis type: Escherichia coli Qualifier Code: (A41.51) Sepsis due to Escherichia coli [E. coli] Status: AcuteAssessment/Plan: Appears resolved. Attributed UTI, with pansensitive E coli identified 07/29, 08/11, tx with Cipro, now with Gisselle albicans. WBC stable but remains elevated, afebrile, Abx (Rocephin) based upon urine culture results which grew E coli. Current urine culture shows Gisselle, diflucan started. (2) Urinary retention due to benign prostatic hyperplasia Status: AcuteAssessment/Plan: Appreciate Dr Matta' care, with fulguration and placement of irrigation catheter. Marked hydronephrosis (and acute kidney injury) noted bilaterally after decompression, Suspect residua from retention rather than bilat UVJ obstruction Consider recheck in the next 1-2 weeks Creatinine improved, 1.5 is best so far. (3) RANJEET (acute kidney injury) Status: AcuteAssessment/Plan: Creatinine continues elevated, but improved to 1.5, (Stage III/IV). Had been 1.1 previously (Jun 2015) multifactorial with po poor intake, sepsis, obstruction/hydronephrosis. Not on NSAID nor MAX/ARB currently, (4) Anemia Qualifiers: Anemia type: unspecified type Qualifier Code: (D64.9) Anemia, unspecified Status: AcuteAssessment/Plan: Mild, Hb 11.4. 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 INR elevated, likely 2nd to use of ciprofloxacin and poor oral intake with his loss of appetite. Vitamin K given 08/19, but INR edging up again. Outside record suggests hx lupus anticoagulant, which could affect his INR readings. Plan add'l Vit K, and consider checking for this. (6) Hematuria Status: AcuteAssessment/Plan: multifactorial due to UTI, BPH, elevated INR and traumatic delvalle attempt and patient induced trauma. Appreciate Dr Matta' care, including placement of irrigation cath (now out) and fulguration. Stopped Lovenox and Coumadin due to persistent bleeding on 08/22 (7) UTI (urinary tract infection) Qualifiers: Urinary tract infection type: acute cystitis Hematuria presence: with hematuria Qualifier Code: (N30.01) Acute cystitis with hematuria Status : AcuteAssessment/Plan: with sepsis, now resolved. recent UTI with E coli on previous culture(on 07/29 and 08/11), Gisselle albicans on urine cx now. Blood culture negative so far. Mental status improving, suspect close to baseline. WBC still elevated; CT did not suggest alternate cause. (8) BPH (benign prostatic hypertrophy) Qualifiers: Prostatic enlargement morphology: unspecified morphology Lower urinary tract symptom presence: symptoms present Qualifier Code: (N40.1) Benign prostatic hyperplasia with lower urinary tract symptoms Status: Acute Assessment/Plan: contributes to poor urine output and painful urination. Traumatic delvalle attempt in ED contributing to hematuria Urinary retention (now improved) with hydronephrosis bilaterally seen on CT. Apprecaite urology care. 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 (10) Loose stools Status: AcuteAssessment/Plan: with recent abx, checked stool for WBC, C diff; continues to be negative, CT abd did not show cause for this. (11) Mechanical heart valve present Status: ChronicAssessment/Plan: stopped anticoagulant therapy on 08/22 due to intractable bleeding (hematuria), family aware of stroke risks (12) Hydronephrosis Qualifiers: Hydronephrosis type: other Qualifier Code: (N13.39) Other hydronephrosis Status: AcuteAssessment/Plan: Suspect residua of FONTAINE/BPH. Hopefully will decompress and improve. Consider recheck at future date. VTE Prophylaxis: mechanical measures only due to intractable bleeding Disposition: Will continue Med/Surg, consider for [place] in the next 1-2 days if continues to do well.
[2016-08-25] MEDS: INSULIN GLARGINE (DOSE) 100 UNITS/ML UNIT SUB-Q SCH (08:34)
[2016-08-25] MEDS: QUETIAPINE FUMARATE 25 MG TABLET PO SCH ×2 (09:51→20:38)
[2016-08-25] MEDS: FINASTERIDE 5 MG TABLET PO SCH (09:52)
[2016-08-25] MEDS: PHENAZOPYRIDINE HCL 200 MG TABLET PO SCH ×3 (09:52→20:36)
[2016-08-25] MEDS: NYSTATIN CREAM 15 APPLIC/15 G TUBE TP SCH ×2 (09:52→20:38)
[2016-08-25] MEDS: METOPROLOL TARTRATE 25 MG TABLET PO SCH ×2 (09:52→20:59)
[2016-08-25] MEDS: BACITRACIN 1 APPLIC/500 UNIT PACKET TP SCH ×4 (09:53→20:41)
[2016-08-25] MEDS ORDERED: PHYTONADIONE 10 MG/1 ML AMP SUB-Q ONE (10:12)
[2016-08-25] MEDS: DOCUSATE SODIUM 100 MG CAPSULE PO SCH ×2 (12:28→20:37)
[2016-08-25] MEDS: CEFTRIAXONE SODIUM 2 G in SODIUM CHLORIDE 0.9% 100 ML IV SCH (12:39)
[2016-08-25] MEDS ORDERED: LIDOCAINE 2% UROJECT 10 ML ONE (13:20)
[2016-08-25] MEDS: INSULIN ASPART (DOSE) 100 UNITS/1 ML SUB-Q PRN ×2 (14:27→18:57)
[2016-08-25] MEDS: FLUCONAZOLE 100 MG TABLET PO SCH (16:03)
[2016-08-25] MEDS: PANTOPRAZOLE 40 MG TABLET DR PO SCH (16:03)
[2016-08-26 06:00] LABS: ABSOLUTE NEUTROPHIL COUNT 11.3 K/mm3 (1.8-7.7); BASO % 0.2 % (0.2-1.0); EOS # 0.4 (0.0-0.5); EOS % 2.8 % (0.9-2.9); HEMATOCRIT 33.5 % (32.0-52.0); HEMOGLOBIN 10.7 gm/l (14.0-18.0); IMM NEUT # 0.4 K/mm3 (0-0.2); IMM NEUT% 2.5 % (0-1); LYMPH # 0.8 (1.0-4.8); LYMPH % 5.5 % (15-45); MEAN CORPUSCULAR HEMOGLOBIN 30.7 pg (27.0-31.0); MEAN CORPUSCULAR HGB CONC 31.9 g/dl (33.0-37.0); MONO % 7.3 % (4-12); NEUT % 81.7 % (43-75); PLATELET COUNT 189 K/mm3 (130-400); RED CELL DISTRIBUTION WIDTH 13.2 % (11.5-14.5)
[2016-08-26 06:20] LABS: INR 2.54
[2016-08-26 06:29] LABS: ALB/GLOB RATIO 0.7 (>1.0); ALBUMIN 2.3 gm/dL (3.5-5.7); CALCIUM 8.2 mg/dL (8.6-10.3)
[2016-08-26] MEDS: METOPROLOL TARTRATE 25 MG TABLET PO SCH ×2 (09:40→22:10)
[2016-08-26] MEDS: INSULIN GLARGINE (DOSE) 100 UNITS/ML UNIT SUB-Q SCH (09:40)
[2016-08-26] MEDS: BACITRACIN 1 APPLIC/500 UNIT PACKET TP SCH ×4 (09:40→22:09)
[2016-08-26] MEDS: DOCUSATE SODIUM 100 MG CAPSULE PO SCH ×2 (09:40→22:09)
[2016-08-26] MEDS: FINASTERIDE 5 MG TABLET PO SCH (09:40)
[2016-08-26] MEDS: NYSTATIN CREAM 15 APPLIC/15 G TUBE TP SCH ×2 (09:40→22:18)
[2016-08-26] MEDS: PHENAZOPYRIDINE HCL 200 MG TABLET PO SCH ×3 (09:40→22:10)
[2016-08-26] MEDS: QUETIAPINE FUMARATE 25 MG TABLET PO SCH ×2 (09:40→22:10)
--- NOTE | 2016-08-26 12:24 | PDOC43 ---
- Subjective Chief Complaint: hematuria, sepsis, UTI Patient sleeping, will arouse, has no complaints Subjective: Reports Pain Tolerable, Denies Adequate Oral Intake, Denies Urinating Without Difficulty, Denies Shortness of Breath, Denies Cough, Denies Chest Pain, Denies Abdominal Pain - Objective Vital Signs Temperature 98.2 F 08/26/16 08:18 Pulse Rate 107 08/26/16 08:18 Respiratory Rate 18 08/26/16 08:18 Blood Pressure 144/76 08/26/16 08:18 O2 Saturation by Pulse Oximetry 94 08/26/16 08:18 Oxygen Delivery Method Room Air Oxygen Flow Rate 0 Intake and Output 08/24/16 08/25/16 08/26/16 23:59 23:59 23:59 Intake Total 3345 560 550 Output Total 1785 1990 1430 Balance 1560 -1430 -880 General: Alert, Oriented x3, Cooperative, No Acute Distress HEENT: Atraumatic, Other (mucus membranes slightly dry) Lungs: Clear to Auscultation Bilaterally, Normal Air Movement Cardiovascular: Regular Rate and Rhythm, Normal S1, Normal S2, Other (click) Abdomen: Soft, Mild Distention, No Rigid, No Tenderness, No Rebounding Extremities: No Cyanosis, No Edema, No Tenderness Neurological: Normal Speech Psych/Mental Status: Normal Mood Laboratory 08/26/16 05:30 08/26/16 05:30 08/26/16 08/25/16 08/25/16 05:30 22:17 18:50 RBC 3.49 L MCV 96.0 H MCHC 31.9 L PT 28.0 H Estimated GFR 48 L POC Capillary Glucose 126 H 189 H Calcium 8.2 L Total Protein 5.8 L Albumin 2.3 L Albumin/Globulin Ratio 0.7 L % Immature Granulocyt 2.5 H 08/25/16 12:37 RBC MCV MCHC PT Estimated GFR POC Capillary Glucose 243 H Calcium Total Protein Albumin Albumin/Globulin Ratio % Immature Granulocyt Current Medications: Current meds reviewed in EMR. - Problems: Assessment/Plan (1) Sepsis Qualifiers: Sepsis type: Escherichia coli Qualifier Code: (A41.51) Sepsis due to Escherichia coli [E. coli] Status: AcuteAssessment/Plan: Appears resolved. Attributed UTI, with pansensitive E coli identified 07/29, 08/11, tx with Cipro, now with Gisselle albicans. WBC stable but remains elevated, afebrile, Abx (Rocephin) based upon urine culture results which grew E coli. Stopped rocephin Current urine culture shows Gisselle, diflucan started 08/19, day 8 (2) DKA (diabetic ketoacidoses) Qualifiers: Diabetes mellitus type: type 2 Diabetes mellitus complication detail: without coma Qualifier Code: (E13.10) Other specified diabetes mellitus with ketoacidosis without coma Status: AcuteAssessment/Plan: BS improved with resolution of AG. But more elevated since starting D5 Continue home insulin therapy with sliding scale for meal coverage (3) UTI (urinary tract infection) Qualifiers: Urinary tract infection type: acute cystitis Hematuria presence: with hematuria Qualifier Code: (N30.01) Acute cystitis with hematuria Status : AcuteAssessment/Plan: with sepsis, now resolved. recent UTI with E coli on previous culture(on 07/29 and 08/11), Gisselle albicans on urine cx now. Blood culture negative so far. Mental status improving, suspect close to baseline. WBC still elevated; CT did not suggest alternate cause. WBC improving, 13.8 today (4) Elevated INR Status: ResolvedAssessment/Plan: Patient had been on warfarin for mechanical valve, but had to stop due to ongoing bleeding. INR elevated, likely 2nd to use of ciprofloxacin and poor oral intake with his loss of appetite. Vitamin K given 08/19, but INR edging up again. Outside record suggests hx lupus anticoagulant, which could affect his INR readings. Plan add'l Vit K, and consider checking for this. (5) RANEJET (acute kidney injury) Status: AcuteAssessment/Plan: Creatinine continues elevated, but improved to 1.5, (Stage III/IV). Had been 1.1 previously (Jun 2015) multifactorial with po poor intake, sepsis, obstruction/hydronephrosis. Not on NSAID nor MAX/ARB currently, (6) Hyponatremia Status: AcuteAssessment/Plan: resolved (7) HLD (hyperlipidemia) Qualifiers: Hyperlipidemia type: mixed hyperlipidemia Qualifier Code: (E78.2) Mixed hyperlipidemia Status: AcuteAssessment/Plan: stable (8) BPH (benign prostatic hypertrophy) Qualifiers: Prostatic enlargement morphology: unspecified morphology Lower urinary tract symptom presence: symptoms present Qualifier Code: (N40.1) Benign prostatic hyperplasia with lower urinary tract symptoms Status: Acute Assessment/Plan: contributes to poor urine output and painful urination. Traumatic delvalle attempt in ED contributing to hematuria Urinary retention (now improved) with hydronephrosis bilaterally seen on CT. Appreciate urology care. 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 Appreciate Dr Matta' care, including placement of irrigation cath (now out) and fulguration. Stopped Lovenox and Coumadin due to persistent bleeding on 08/22 Continued hematuria overnight. Monitor 08/24/2015 operative intervention for advance phimosis and recurrent clot retention. Patient underwent a dorsal slit, cystoscopy and clot evacuation, fulguration of bladder neck and prostatic urethral bleeding sites (11) Anemia Qualifiers: Anemia type: unspecified type Qualifier Code: (D64.9) Anemia, unspecified Status: AcuteAssessment/Plan: Mild, Hb 11.4. 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 Patient asymptomatic (12) Hypernatremia Status: AcuteAssessment/Plan: Improved since started on D51/2NS- saline lock today Resolved VTE Prophylaxis: mechanical measures only due to intractable bleeding Disposition: Will continue Med/Surg, consider for [place] in the next 1-2 days if continues to do well.
[2016-08-26] MEDS: CEFTRIAXONE 2 GRAM DUPLEX 50 ML IV SCH (12:38)
[2016-08-26] MEDS: INSULIN ASPART (DOSE) 100 UNITS/1 ML SUB-Q PRN (13:49)
[2016-08-26] MEDS: FLUCONAZOLE 100 MG TABLET PO SCH (15:21)
[2016-08-26] MEDS: PANTOPRAZOLE 40 MG TABLET DR PO SCH (15:21)
[2016-08-27 05:49] LABS: HEMATOCRIT 36.1 % (32.0-52.0); MEAN CELL VOLUME 98.6 fl (80.0-94.0); MEAN CORPUSCULAR HEMOGLOBIN 30.1 pg (27.0-31.0); MEAN CORPUSCULAR HGB CONC 30.5 g/dl (33.0-37.0); RED CELL DISTRIBUTION WIDTH 13.2 % (11.5-14.5)
[2016-08-27 06:12] LABS: CALCIUM 8.3 mg/dL (8.6-10.3)
[2016-08-27] MEDS: NYSTATIN CREAM 15 APPLIC/15 G TUBE TP SCH (08:01)
[2016-08-27] MEDS: BACITRACIN 1 APPLIC/500 UNIT PACKET TP SCH ×2 (08:01→12:43)
[2016-08-27] MEDS: INSULIN GLARGINE (DOSE) 100 UNITS/ML UNIT SUB-Q SCH (08:01)
[2016-08-27 08:48] LABS: PERFORMING LAB LHS
[2016-08-27] MEDS: DOCUSATE SODIUM 100 MG CAPSULE PO SCH (08:53)
[2016-08-27] MEDS: METOPROLOL TARTRATE 25 MG TABLET PO SCH (08:53)
[2016-08-27] MEDS: FINASTERIDE 5 MG TABLET PO SCH (08:53)
[2016-08-27] MEDS: PHENAZOPYRIDINE HCL 200 MG TABLET PO SCH (08:53)
[2016-08-27] MEDS: QUETIAPINE FUMARATE 25 MG TABLET PO SCH (08:53)
[2016-08-27] MEDS: CEFTRIAXONE 2 GRAM DUPLEX 50 ML IV SCH (11:41)
[2016-08-27] MEDS: INSULIN ASPART (DOSE) 100 UNITS/1 ML SUB-Q PRN (12:17)
--- NOTE | 2016-08-27 13:09 | DS ---
Brent Lopez ADMIT DATE: 08/18/2016 DISCHARGE DATE: 08/27/2016 ADMIT DIAGNOSES: 1. Urinary tract infection with prior culture results showing castro sensitive Escherichia coli. 2. Sepsis secondary to above. 3. Diabetic ketoacidosis in the context of acute illness as noted above. 4. Over anticoagulated with Coumadin. 5. Hematuria secondary to above. 6. Mechanical heart valve necessitating Coumadin therapy as noted above. 7. Acute kidney injury felt to be multifactorial secondary to above. 8. Hyponatremia. 9. Dementia, not otherwise specified. DISCHARGE DIAGNOSES: 1. Urinary tract infection present on admission with castro sensitive Escherichia coli. 2. Sepsis secondary to above resolved at the time of discharge. 3. Diabetic ketoacidosis in the context of acute illness, resolved. 4. Over anticoagulation with Coumadin felt to be secondary to his interaction of Ciprofloxacin with his Coumadin prior to admission. 5. Hematuria in the context of above. He is status post clot irrigation on 08/19/[address] Matta as well as a repeated clot irrigation on 08/23/2016 with fulguration and dorsal slit procedure for phimosis. He continues with chronic indwelling López at time of discharge. 6. Elevated INR, therapeutic at time of discharge. 7. Acute kidney injury at the time of admission has resolved. 8. Dementia at baseline. 9. Hematuria, recurrent issue throughout the hospitalization, appears to be resolved at time of discharge. ADMIT HISTORY AND PHYSICAL: Please see Dr. Chu's note for details. Briefly, Mr. Lopez is a 89-year-old male with underlying dementia , benign prostatic hypertrophy, and longstanding history of hematuria. He was diagnosed with a urinary tract infection prior to this admission and placed on Coumadin. He apparently developed an elevated INR as a result and developed hematuria subsequently in addition to his urinary tract infection. He was admitted with urinary tract infection, sepsis, hematuria, and diabetic ketoacidosis secondary to above. HOSPITAL COURSE: He was admitted and started on Rocephin. Urine cultures continued to show castro sensitive E-coli. He did undergo two urologic procedures as outlined above for his hematuria. By day of discharge his hematuria seemed to be resolved and his López was draining without difficulty. His second urine culture did show evidence of charlotte species and he was subsequently started on Diflucan otherwise, by the day of discharge he was at his baseline and it was felt he was safe for discharge with plans for close outpatient follow up with urology. DISCHARGE MEDICATIONS: 1. Proscar 5 mg by mouth daily. 2. Coumadin as instructed. 3. Tylenol as needed. 4. Albuterol nebulizer as needed. 5. Lantus 25 units subcutaneously daily. 6. NovoLog correction scale. 7. Bacitracin ointment to the site of his phimosis procedure. 8. Diflucan 100 mg by mouth daily x5 more days. 9. Metoprolol 25 mg by mouth twice daily. 10. Protonix 40 mg by mouth daily. 11. Quetiapine 25 mg by mouth twice daily. DISCHARGE FOLLOWUP: Will be with Dr. Matta on 08/31/2016 as scheduled and with his regular physician Dr. Gavin on 09/08/2016 as scheduled. DISPOSITION: He is being discharged to [facility]. JOB: [id number] CC: Dr. Paxton Gavin
[2016-08-27 13:21] VITALS: BP 119/74
== END 2016-08-27 14:15 | DRG 853 ==
LOC: ED 09:33 → ICU 12:19 → MS 08-20 20:15
PROVIDERS: ADMIT Family Medicine; ATTEND Family Medicine
PROC: 0TC Urinary System, Extirpation (ICD-10-PCS; principal; 2016-08-19)
PROC: 0T5 Urinary System, Destruction (ICD-10-PCS; 2016-08-23)
PROC: 0TCD8ZZ Extirpation of Matter from Urethra, Via Natural or Artificial Opening Endoscopic (ICD-10-PCS; 2016-08-23)
DX: A41.51 Sepsis due to Escherichia coli [E. coli] (principal); E13.10 Other specified diabetes mellitus with ketoacidosis without coma; N39.0 Urinary tract infection, site not specified; N17.9 Acute kidney failure, unspecified; E87.1 Hypo-osmolality and hyponatremia; B96.20 Unspecified Escherichia coli [E. coli] as the cause of diseases classified elsewhere; R31.9 Hematuria, unspecified; N40.1 Benign prostatic hyperplasia with lower urinary tract symptoms; D64.9 Anemia, unspecified; E78.2 Mixed hyperlipidemia; N18.3 Chronic kidney disease, stage 3 (moderate); Z79.4 Long term (current) use of insulin; Z79.01 Long term (current) use of anticoagulants

== ENCOUNTER 2016-08-28 17:56 | Emergency (ER) | payer MEDICARE, OTHER ==
[2016-08-28 19:04] LABS: ABSOLUTE NEUTROPHIL COUNT 12.2 K/mm3 (1.8-7.7); BASO # 0.1 K/mm3 (0.0-0.2); BASO % 0.3 % (0.2-1.0); EOS # 0.2 (0.0-0.5); EOS % 1.4 % (0.9-2.9); HEMATOCRIT 34.7 % (32.0-52.0); HEMOGLOBIN 10.8 gm/l (14.0-18.0); IMM NEUT # 0.2 K/mm3 (0-0.2); IMM NEUT% 1.7 % (0-1); LYMPH # 0.9 (1.0-4.8); MEAN CELL VOLUME 97.7 fl (80.0-94.0); MEAN CORPUSCULAR HEMOGLOBIN 30.4 pg (27.0-31.0); MEAN CORPUSCULAR HGB CONC 31.1 g/dl (33.0-37.0); MEAN PLATELET VOLUME 9.6 fl (7.4-10.4); MONO # 0.9 (0.0-0.8); MONO % 6.3 % (4-12); NEUT % 84.3 % (43-75); PLATELET COUNT 259 K/mm3 (130-400); RED CELL DISTRIBUTION WIDTH 13.1 % (11.5-14.5)
[2016-08-28 19:11] LABS: INR 1.74; PROTHROMBIN TIME 18.8 SECONDS (9.3-11.4)
== END 2016-08-28 22:24 | disposition home or self-care (01) ==
LOC: ED 17:56
DX: R31.9 Hematuria, unspecified (principal); I38 Endocarditis, valve unspecified; E11.9 Type 2 diabetes mellitus without complications; Z95.4 Presence of other heart-valve replacement; Z79.01 Long term (current) use of anticoagulants; Z88.2 Allergy status to sulfonamides